=== PATIENT | male | born 1980 | race Asian ===

== ENCOUNTER 2016-04-01 13:08 | Inpatient (IN) | payer OTHER ==
[2016-04-01] MEDS ORDERED: MENTHOL/PHENOL 1 EACH UD MM PRN (15:59)
[2016-04-01] MEDS ORDERED: NICOTINE POLACRILEX 2 MG GUM BUC PRN (15:59)
[2016-04-01] MEDS ORDERED: MAGNESIUM CITRATE 300 ML BOTTLE PO PRN (15:59)
[2016-04-01] MEDS ORDERED: MAG HYDROX/AL HYDROX/SIMETH 30 ML UNIT-DOSE CUP PO PRN (15:59)
[2016-04-01] MEDS ORDERED: LOPERAMIDE HCL 2 MG CAPSULE PO PRN (15:59)
[2016-04-01] MEDS ORDERED: MAGNESIUM HYDROX 2400MG/30ML ORAL SUSPENSION 30 ML CUP PO PRN (15:59)
[2016-04-01] MEDS ORDERED: P-EPHED 60MG/TRIPROLIDI 2.5MG TABLET PO PRN (15:59)
--- NOTE | 2016-04-01 16:03 | HP ---
[facility] Rehab Assess/Revision - Admission History Admitted to Rehab from: [facility] Date of Admission to Rehab: 04/01/16 - Vital signs Vital Signs: Vital Signs Period Temp Pulse Resp BP Sys/Isabel Pulse Ox Last 24 Hr 99 F 97 18 104/60 - Findings Detox History & Physical reviewed: Yes Concur with findings: Yes
[2016-04-01] MEDS: IBUPROFEN 400 MG TABLET (FP) PO PRN (19:04)
[2016-04-01] MEDS: THIAMINE HCL 100 MG TABLET (FP) PO SCH (21:24)
[2016-04-01] MEDS: QUEtiapine FUMARATE 100 MG TABLET (FP) PO SCH (21:24)
[2016-04-02] MEDS ORDERED: METHADONE HCL 40 MG DISPERSABLE TABLET ONE (03:15)
[2016-04-02] MEDS ORDERED: METHADONE HCL 10 MG TABLET ONE (03:15)
[2016-04-02] MEDS ORDERED: METHADONE HCL 10 MG TABLET PO SCH (06:00)
[2016-04-02] MEDS: METHADONE 120 MG, METHADONE 20 MG PO SCH (06:13)
[2016-04-02] MEDS: NICOTINE 14 MG/24 HOURS TOPICAL PATCH TD SCH (09:50)
[2016-04-02] MEDS: PRENATAL VITAMINS W/ FOLIC ACID TABLET (FP) PO SCH (09:50)
--- NOTE | 2016-04-02 12:24 | HP ---
Psychiatrist Admission - Data Date of interview: 04/02/16 Admission source: 6N Identifying data: This is the second [facility] admission for this 36 years [place] male, unemployed with no source of income, currently homeless. Medical History: Significant for history of drug-elated seizure and S/P fracture right forearm & right elbow. Patient smokes 10 cigarettes daily, on MMTP 140 mg daily. Psychiatric History: Pateint reports first psychiatric contact was in 2012 at [facility] in [place], [place] following a suicidal attempt as overdosing with Ambien, reports he was extremely anxious and panicy "just to end it I took 30 pills", he was admitted to the hospital for 3 days and discharged after, and never followed up out patient setting. He denies any suicidal ideations at present time. States he is currently on Seroquel 400 mg po hs, Seen by and continued 300 mg po hs. Physical/Sexual Abuse/Trauma History: Denies history of physical, sexual abuse as well as DV relationship Vital Signs: Vital Signs - 24 hr 04/01/16 04/02/16 04/02/16 13:48 00:30 03:30 Temperature 99 F Pulse Rate 97 H Respiratory 18 18 18 Rate Blood Pressure 104/60 04/02/16 05:56 Temperature 97.2 F L Pulse Rate 86 Respiratory 18 Rate Blood Pressure 109/75 Allergies/Adverse Reactions: Allergies Allergy/AdvReac Type Severity Reaction Status Date / Time No Known Allergies Allergy Verified 04/01/16 13:42 Date of last physical exam: 03/29/16 Concur with the findings of this exam: Yes - Substance Abuse/Tx History Hx Alcohol Use: Yes (vodka, beer daily use.) Hx Substance Use: No Substance Use Type: Heroin (last use 3 months ago) Hx Substance Use Treatment: Yes - Admission Criteria Previous failed treatment: Yes Poor recovery environment: Yes Comorbidities: Yes Lacks judgement: Yes Mental Status Exam - Mental Status Exam Alert and Oriented to: Time, Place, Person Cognitive Function: Good Patient Appearance: Well Groomed Mood: Sad, Hopeful Affect: Appropriate, Mood Congruent Patient Behavior: Appropriate, Cooperative Speech Pattern: Clear, Appropriate Voice Loudness: Normal Thought Process: Intact, Goal Oriented Thought Disorder: Not Present Hallucinations: Denies Suicidal Ideation: Denies Homicidal Ideation: Denies Insight/Judgement: Fair Sleep: Fair Appetite: Good Muscle strength/Tone: Normal Gait/Station: Normal Psychiatric Findings - Problem List ([place] 1, 2,3) (1) Alcohol dependence with uncomplicated withdrawal Current Visit: No Status: Chronic (2) Methadone maintenance therapy patient Current Visit: No Status: Chronic Comment: patient missed "few days" received 120 ml today 03/27/16, begin 130 mg on 03/28/16 and 140 mg on 03/29/16 and after verified by DOT Uma[place] at [facility] (3) Nicotine dependence Current Visit: No Status: Chronic Qualifiers: Nicotine product type: cigarettes Substance use status: uncomplicated Qualified Code(s): F17.210 - Nicotine dependence, cigarettes, uncomplicated (4) Alcohol dependence with alcohol-induced mood disorder Current Visit: Yes Status: Acute - Initial Treatment Plan Initial Treatment Plan: Will continue Seroquel 300 mg po hs, monitor progress as needed.
[2016-04-02] MEDS ORDERED: HYDROCORTISONE 1% TOPICAL CREAM 30 GM TUBE TP PRN (14:26)
[2016-04-02] MEDS ORDERED: COLLOIDAL OATMEAL 1 BAR EACH TP PRN (14:27)
[2016-04-02] MEDS: IBUPROFEN 400 MG TABLET (FP) PO PRN (17:35)
[2016-04-02] MEDS: QUEtiapine FUMARATE 100 MG TABLET (FP) PO SCH (21:15)
[2016-04-02] MEDS: THIAMINE HCL 100 MG TABLET (FP) PO SCH (21:15)
[2016-04-03] MEDS ORDERED: METHADONE HCL 40 MG DISPERSABLE TABLET ONE (04:14)
[2016-04-03] MEDS ORDERED: METHADONE HCL 10 MG TABLET ONE (04:14)
[2016-04-03] MEDS: METHADONE 120 MG, METHADONE 20 MG PO SCH (06:09)
[2016-04-03] MEDS: guaiFENesin/D-METHORPHAN HB 10 ML UNIT-DOSE CUPS PO PRN ×2 (08:28→21:42)
[2016-04-03] MEDS: ACETAMINOPHEN 325 MG TABLET (FP) PO PRN ×2 (09:04→21:15)
[2016-04-03] MEDS: NICOTINE 14 MG/24 HOURS TOPICAL PATCH TD SCH (09:50)
[2016-04-03] MEDS: PRENATAL VITAMINS W/ FOLIC ACID TABLET (FP) PO SCH (09:50)
[2016-04-03] MEDS: IBUPROFEN 600 MG TABLET (FP) PO PRN (14:17)
[2016-04-03] MEDS: THIAMINE HCL 100 MG TABLET (FP) PO SCH (21:14)
[2016-04-03] MEDS: QUEtiapine FUMARATE 100 MG TABLET (FP) PO SCH (21:15)
[2016-04-04] MEDS ORDERED: METHADONE HCL 10 MG TABLET ONE (03:12)
[2016-04-04] MEDS ORDERED: METHADONE HCL 40 MG DISPERSABLE TABLET ONE (03:12)
[2016-04-04] MEDS: METHADONE 120 MG, METHADONE 20 MG PO SCH (06:10)
[2016-04-04] MEDS: IBUPROFEN 600 MG TABLET (FP) PO PRN (09:44)
[2016-04-04] MEDS: PRENATAL VITAMINS W/ FOLIC ACID TABLET (FP) PO SCH (09:45)
[2016-04-04] MEDS: NICOTINE 14 MG/24 HOURS TOPICAL PATCH TD SCH (09:45)
[2016-04-04] MEDS: ACETAMINOPHEN 325 MG TABLET (FP) PO PRN (20:02)
[2016-04-04] MEDS: THIAMINE HCL 100 MG TABLET (FP) PO SCH (21:18)
[2016-04-04] MEDS: QUEtiapine FUMARATE 100 MG TABLET (FP) PO SCH (21:18)
[2016-04-04] MEDS ORDERED: SIMETHICONE 80 MG TAB.CHEW (FP) PO PRN (21:59)
[2016-04-05] MEDS ORDERED: METHADONE HCL 40 MG DISPERSABLE TABLET ONE (04:19)
[2016-04-05] MEDS ORDERED: METHADONE HCL 10 MG TABLET ONE (04:19)
[2016-04-05] MEDS: METHADONE 120 MG, METHADONE 20 MG PO SCH (06:12)
[2016-04-05] MEDS: PRENATAL VITAMINS W/ FOLIC ACID TABLET (FP) PO SCH (09:46)
[2016-04-05] MEDS: NICOTINE 14 MG/24 HOURS TOPICAL PATCH TD SCH (09:47)
[2016-04-05] MEDS: IBUPROFEN 600 MG TABLET (FP) PO PRN (10:13)
[2016-04-05] MEDS: diphenhydrAMINE HCL 50 MG CAPSULE PO PRN (21:23)
[2016-04-05] MEDS: THIAMINE HCL 100 MG TABLET (FP) PO SCH (21:23)
[2016-04-05] MEDS: QUEtiapine FUMARATE 100 MG TABLET (FP) PO SCH (21:23)
[2016-04-06] MEDS ORDERED: METHADONE HCL 40 MG DISPERSABLE TABLET ONE (03:40)
[2016-04-06] MEDS ORDERED: METHADONE HCL 10 MG TABLET ONE (03:41)
[2016-04-06] MEDS: METHADONE 120 MG, METHADONE 20 MG PO SCH (06:09)
[2016-04-06] MEDS: PRENATAL VITAMINS W/ FOLIC ACID TABLET (FP) PO SCH (09:36)
[2016-04-06] MEDS: NICOTINE 14 MG/24 HOURS TOPICAL PATCH TD SCH (09:36)
[2016-04-06] MEDS: QUEtiapine FUMARATE 100 MG TABLET (FP) PO SCH (21:21)
[2016-04-06] MEDS: diphenhydrAMINE HCL 50 MG CAPSULE PO PRN (21:21)
[2016-04-06] MEDS: THIAMINE HCL 100 MG TABLET (FP) PO SCH (21:21)
[2016-04-07] MEDS ORDERED: METHADONE HCL 10 MG TABLET ONE (04:40)
[2016-04-07] MEDS ORDERED: METHADONE HCL 40 MG DISPERSABLE TABLET ONE (04:40)
[2016-04-07] MEDS: METHADONE 120 MG, METHADONE 20 MG PO SCH (06:22)
[2016-04-07] MEDS: PRENATAL VITAMINS W/ FOLIC ACID TABLET (FP) PO SCH (09:37)
[2016-04-07] MEDS: NICOTINE 14 MG/24 HOURS TOPICAL PATCH TD SCH (09:37)
[2016-04-07] MEDS: THIAMINE HCL 100 MG TABLET (FP) PO SCH (21:38)
[2016-04-07] MEDS: diphenhydrAMINE HCL 50 MG CAPSULE PO PRN (21:38)
[2016-04-07] MEDS: QUEtiapine FUMARATE 100 MG TABLET (FP) PO SCH (21:38)
[2016-04-08] MEDS ORDERED: METHADONE HCL 40 MG DISPERSABLE TABLET ONE (03:12)
[2016-04-08] MEDS ORDERED: METHADONE HCL 10 MG TABLET ONE (03:13)
[2016-04-08] MEDS: METHADONE 120 MG, METHADONE 20 MG PO SCH (06:10)
[2016-04-08] MEDS: NICOTINE 14 MG/24 HOURS TOPICAL PATCH TD SCH (09:46)
[2016-04-08] MEDS: PRENATAL VITAMINS W/ FOLIC ACID TABLET (FP) PO SCH (09:46)
[2016-04-08] MEDS: THIAMINE HCL 100 MG TABLET (FP) PO SCH (21:16)
[2016-04-08] MEDS: QUEtiapine FUMARATE 100 MG TABLET (FP) PO SCH (21:16)
[2016-04-08] MEDS: diphenhydrAMINE HCL 50 MG CAPSULE PO PRN (21:18)
[2016-04-09] MEDS ORDERED: METHADONE HCL 40 MG DISPERSABLE TABLET ONE (03:15)
[2016-04-09] MEDS ORDERED: METHADONE HCL 10 MG TABLET ONE (03:15)
[2016-04-09] MEDS: METHADONE 120 MG, METHADONE 20 MG PO SCH (06:04)
[2016-04-09] MEDS: NICOTINE 14 MG/24 HOURS TOPICAL PATCH TD SCH (09:48)
[2016-04-09] MEDS: PRENATAL VITAMINS W/ FOLIC ACID TABLET (FP) PO SCH (09:48)
[2016-04-09] MEDS: THIAMINE HCL 100 MG TABLET (FP) PO SCH (21:02)
[2016-04-09] MEDS: diphenhydrAMINE HCL 50 MG CAPSULE PO PRN (21:04)
[2016-04-09] MEDS: QUEtiapine FUMARATE 100 MG TABLET (FP) PO SCH (21:04)
[2016-04-10] MEDS ORDERED: METHADONE HCL 10 MG TABLET ONE (03:43)
[2016-04-10] MEDS ORDERED: METHADONE HCL 40 MG DISPERSABLE TABLET ONE (03:43)
[2016-04-10] MEDS: METHADONE 120 MG, METHADONE 20 MG PO SCH (05:59)
[2016-04-10] MEDS: NICOTINE 14 MG/24 HOURS TOPICAL PATCH TD SCH (10:15)
[2016-04-10] MEDS: PRENATAL VITAMINS W/ FOLIC ACID TABLET (FP) PO SCH (10:15)
[2016-04-10] MEDS: IBUPROFEN 600 MG TABLET (FP) PO PRN (10:16)
[2016-04-10] MEDS: THIAMINE HCL 100 MG TABLET (FP) PO SCH (21:20)
[2016-04-10] MEDS: QUEtiapine FUMARATE 100 MG TABLET (FP) PO SCH (21:20)
[2016-04-10] MEDS: diphenhydrAMINE HCL 50 MG CAPSULE PO PRN (21:21)
[2016-04-11] MEDS ORDERED: METHADONE HCL 40 MG DISPERSABLE TABLET ONE (03:14)
[2016-04-11] MEDS ORDERED: METHADONE HCL 10 MG TABLET ONE (03:14)
[2016-04-11] MEDS: METHADONE 120 MG, METHADONE 20 MG PO SCH (06:21)
[2016-04-11] MEDS: NICOTINE 14 MG/24 HOURS TOPICAL PATCH TD SCH (09:48)
[2016-04-11] MEDS: PRENATAL VITAMINS W/ FOLIC ACID TABLET (FP) PO SCH (09:48)
[2016-04-11] MEDS: QUEtiapine FUMARATE 100 MG TABLET (FP) PO SCH (21:06)
[2016-04-11] MEDS: THIAMINE HCL 100 MG TABLET (FP) PO SCH (21:06)
[2016-04-11] MEDS: diphenhydrAMINE HCL 50 MG CAPSULE PO PRN (21:07)
[2016-04-12] MEDS ORDERED: METHADONE HCL 40 MG DISPERSABLE TABLET ONE (04:52)
[2016-04-12] MEDS ORDERED: METHADONE HCL 10 MG TABLET ONE (04:53)
[2016-04-12] MEDS: METHADONE 120 MG, METHADONE 20 MG PO SCH (06:01)
[2016-04-12] MEDS: PRENATAL VITAMINS W/ FOLIC ACID TABLET (FP) PO SCH (10:00)
[2016-04-12] MEDS: NICOTINE 14 MG/24 HOURS TOPICAL PATCH TD SCH (10:00)
[2016-04-12] MEDS: IBUPROFEN 600 MG TABLET (FP) PO PRN (10:01)
[2016-04-12] MEDS: QUEtiapine FUMARATE 100 MG TABLET (FP) PO SCH (21:05)
[2016-04-12] MEDS: THIAMINE HCL 100 MG TABLET (FP) PO SCH (21:05)
[2016-04-12] MEDS: diphenhydrAMINE HCL 50 MG CAPSULE PO PRN (21:06)
[2016-04-13] MEDS ORDERED: METHADONE HCL 40 MG DISPERSABLE TABLET ONE (04:42)
[2016-04-13] MEDS ORDERED: METHADONE HCL 10 MG TABLET ONE (04:42)
[2016-04-13] MEDS: METHADONE 120 MG, METHADONE 20 MG PO SCH (06:08)
[2016-04-13] MEDS: NICOTINE 14 MG/24 HOURS TOPICAL PATCH TD SCH (09:47)
[2016-04-13] MEDS: PRENATAL VITAMINS W/ FOLIC ACID TABLET (FP) PO SCH (09:47)
[2016-04-13] MEDS: QUEtiapine FUMARATE 100 MG TABLET (FP) PO SCH (21:24)
[2016-04-13] MEDS: THIAMINE HCL 100 MG TABLET (FP) PO SCH (21:24)
[2016-04-13] MEDS: diphenhydrAMINE HCL 50 MG CAPSULE PO PRN (21:25)
[2016-04-14] MEDS ORDERED: METHADONE HCL 40 MG DISPERSABLE TABLET ONE (03:07)
[2016-04-14] MEDS ORDERED: METHADONE HCL 10 MG TABLET ONE (03:08)
[2016-04-14] MEDS: METHADONE 120 MG, METHADONE 20 MG PO SCH (06:26)
[2016-04-14] MEDS: PRENATAL VITAMINS W/ FOLIC ACID TABLET (FP) PO SCH (09:51)
[2016-04-14] MEDS: NICOTINE 14 MG/24 HOURS TOPICAL PATCH TD SCH (09:51)
[2016-04-14] MEDS: QUEtiapine FUMARATE 100 MG TABLET (FP) PO SCH (21:11)
[2016-04-14] MEDS: THIAMINE HCL 100 MG TABLET (FP) PO SCH (21:12)
[2016-04-15] MEDS ORDERED: METHADONE HCL 10 MG TABLET ONE (03:10)
[2016-04-15] MEDS ORDERED: METHADONE HCL 40 MG DISPERSABLE TABLET ONE (03:10)
[2016-04-15] MEDS: METHADONE 120 MG, METHADONE 20 MG PO SCH (06:28)
[2016-04-15] MEDS: PRENATAL VITAMINS W/ FOLIC ACID TABLET (FP) PO SCH (09:31)
[2016-04-15] MEDS: NICOTINE 14 MG/24 HOURS TOPICAL PATCH TD SCH (09:31)
[2016-04-15] MEDS: IBUPROFEN 600 MG TABLET (FP) PO PRN (10:51)
[2016-04-15] MEDS: THIAMINE HCL 100 MG TABLET (FP) PO SCH (21:48)
[2016-04-15] MEDS: QUEtiapine FUMARATE 100 MG TABLET (FP) PO SCH (21:48)
[2016-04-16] MEDS ORDERED: METHADONE HCL 10 MG TABLET ONE (03:16)
[2016-04-16] MEDS ORDERED: METHADONE HCL 40 MG DISPERSABLE TABLET ONE (03:16)
[2016-04-16] MEDS: METHADONE 120 MG, METHADONE 20 MG PO SCH (06:06)
[2016-04-16] MEDS: NICOTINE 14 MG/24 HOURS TOPICAL PATCH TD SCH (09:40)
[2016-04-16] MEDS: PRENATAL VITAMINS W/ FOLIC ACID TABLET (FP) PO SCH (09:40)
[2016-04-16] MEDS: diphenhydrAMINE HCL 50 MG CAPSULE PO PRN (21:39)
[2016-04-16] MEDS: THIAMINE HCL 100 MG TABLET (FP) PO SCH (21:39)
[2016-04-16] MEDS: QUEtiapine FUMARATE 100 MG TABLET (FP) PO SCH (21:39)
[2016-04-17] MEDS ORDERED: METHADONE HCL 10 MG TABLET ONE (03:20)
[2016-04-17] MEDS ORDERED: METHADONE HCL 40 MG DISPERSABLE TABLET ONE (03:20)
[2016-04-17] MEDS ORDERED: METHADONE HCL 40 MG DISPERSABLE TABLET PO SCH (06:00)
[2016-04-17] MEDS: METHADONE 120 MG, METHADONE 20 MG PO SCH (06:06)
[2016-04-17] MEDS: IBUPROFEN 600 MG TABLET (FP) PO PRN (09:38)
[2016-04-17] MEDS: PRENATAL VITAMINS W/ FOLIC ACID TABLET (FP) PO SCH (09:39)
[2016-04-17] MEDS: NICOTINE 14 MG/24 HOURS TOPICAL PATCH TD SCH (09:39)
[2016-04-17] MEDS: diphenhydrAMINE HCL 50 MG CAPSULE PO PRN (21:57)
[2016-04-17] MEDS: THIAMINE HCL 100 MG TABLET (FP) PO SCH (21:57)
[2016-04-17] MEDS: QUEtiapine FUMARATE 100 MG TABLET (FP) PO SCH (21:58)
[2016-04-18] MEDS ORDERED: METHADONE HCL 40 MG DISPERSABLE TABLET ONE (06:02)
[2016-04-18] MEDS ORDERED: METHADONE HCL 10 MG TABLET ONE (06:02)
[2016-04-18] MEDS: METHADONE 120 MG, METHADONE 20 MG PO SCH (06:29)
[2016-04-18] MEDS: PRENATAL VITAMINS W/ FOLIC ACID TABLET (FP) PO SCH (09:54)
[2016-04-18] MEDS: NICOTINE 14 MG/24 HOURS TOPICAL PATCH TD SCH (09:54)
[2016-04-18] MEDS: IBUPROFEN 600 MG TABLET (FP) PO PRN (14:24)
[2016-04-18] MEDS: QUEtiapine FUMARATE 100 MG TABLET (FP) PO SCH (21:28)
[2016-04-18] MEDS: THIAMINE HCL 100 MG TABLET (FP) PO SCH (21:28)
[2016-04-19] MEDS ORDERED: METHADONE HCL 40 MG DISPERSABLE TABLET ONE (06:07)
[2016-04-19] MEDS ORDERED: METHADONE HCL 10 MG TABLET ONE (06:07)
[2016-04-19] MEDS: METHADONE 120 MG, METHADONE 20 MG PO SCH (06:08)
[2016-04-19] MEDS: PRENATAL VITAMINS W/ FOLIC ACID TABLET (FP) PO SCH (10:21)
[2016-04-19] MEDS: NICOTINE 14 MG/24 HOURS TOPICAL PATCH TD SCH (10:22)
[2016-04-19] MEDS: THIAMINE HCL 100 MG TABLET (FP) PO SCH (21:45)
[2016-04-19] MEDS: QUEtiapine FUMARATE 100 MG TABLET (FP) PO SCH (21:45)
[2016-04-20] MEDS ORDERED: METHADONE HCL 10 MG TABLET ONE (03:02)
[2016-04-20] MEDS ORDERED: METHADONE HCL 40 MG DISPERSABLE TABLET ONE (03:02)
[2016-04-20] MEDS: METHADONE 120 MG, METHADONE 20 MG PO SCH (06:07)
[2016-04-20] MEDS: IBUPROFEN 600 MG TABLET (FP) PO PRN (09:44)
[2016-04-20] MEDS: NICOTINE 14 MG/24 HOURS TOPICAL PATCH TD SCH (09:44)
[2016-04-20] MEDS: PRENATAL VITAMINS W/ FOLIC ACID TABLET (FP) PO SCH (09:44)
[2016-04-20] MEDS: THIAMINE HCL 100 MG TABLET (FP) PO SCH (22:10)
[2016-04-20] MEDS: QUEtiapine FUMARATE 100 MG TABLET (FP) PO SCH (22:10)
[2016-04-21] MEDS ORDERED: METHADONE HCL 10 MG TABLET ONE (03:58)
[2016-04-21] MEDS ORDERED: METHADONE HCL 40 MG DISPERSABLE TABLET ONE (03:58)
[2016-04-21] MEDS: METHADONE 120 MG, METHADONE 20 MG PO SCH (06:26)
[2016-04-21] MEDS: PRENATAL VITAMINS W/ FOLIC ACID TABLET (FP) PO SCH (09:47)
[2016-04-21] MEDS: NICOTINE 14 MG/24 HOURS TOPICAL PATCH TD SCH (09:48)
[2016-04-21] MEDS: QUEtiapine FUMARATE 100 MG TABLET (FP) PO SCH (21:33)
[2016-04-21] MEDS: THIAMINE HCL 100 MG TABLET (FP) PO SCH (21:33)
[2016-04-22] MEDS ORDERED: METHADONE HCL 10 MG TABLET ONE (06:01)
[2016-04-22] MEDS ORDERED: METHADONE HCL 40 MG DISPERSABLE TABLET ONE (06:01)
[2016-04-22] MEDS: METHADONE 120 MG, METHADONE 20 MG PO SCH (07:00)
[2016-04-22] MEDS: PRENATAL VITAMINS W/ FOLIC ACID TABLET (FP) PO SCH (10:03)
[2016-04-22] MEDS: NICOTINE 14 MG/24 HOURS TOPICAL PATCH TD SCH (10:04)
[2016-04-22] MEDS: QUEtiapine FUMARATE 100 MG TABLET (FP) PO SCH (21:35)
[2016-04-22] MEDS: THIAMINE HCL 100 MG TABLET (FP) PO SCH (21:35)
[2016-04-23] MEDS ORDERED: METHADONE HCL 40 MG DISPERSABLE TABLET ONE (03:01)
[2016-04-23] MEDS ORDERED: METHADONE HCL 10 MG TABLET ONE (03:02)
[2016-04-23] MEDS: METHADONE 120 MG, METHADONE 20 MG PO SCH (06:02)
[2016-04-23 06:41] VITALS: BP 117/76; PULSE 83; TEMP 98.1
[2016-04-23] MEDS: PRENATAL VITAMINS W/ FOLIC ACID TABLET (FP) PO SCH (09:46)
[2016-04-23] MEDS: NICOTINE 14 MG/24 HOURS TOPICAL PATCH TD SCH (09:46)
--- NOTE | 2016-04-23 09:57 | PN ---
Psychiatric Progress Note Vital Signs: Vital Signs Period Temp Pulse Resp BP Sys/Isabel Pulse Ox Last 24 Hr 98.1 F 83 18-18 117/76 Date of Session: 04/23/16 Chief Complaint:: dischargev visit HPI: Patient has addresse alcohol, nicotine dependence comorbid alcohol induced mood disorder ROS: on MMTP medically managed. Current Medications: Active Medications Generic Name Dose Route Start Last Admin Trade Name Freq PRN Reason Stop Dose Admin Acetaminophen 650 mg 04/01/16 15:59 04/04/16 20:02 Tylenol - PO 650 mg Q4H PRN Administration FEVER OR PAIN Colloidal Oatmeal 1 applic 04/02/16 14:27 Aveeno Soap - TP DAILY PRN HYGEINE Diphenhydramine HCl 50 mg 04/01/16 15:59 04/17/16 21:57 Benadryl - PO 50 mg HSMR1 PRN Administration FOR ITCHING Eucalyptus/Menthol/Phenol/Sorbitol 1 each 04/01/16 15:59 04/03/16 08:28 Cepastat Lozenge - MM 1 each Q4H PRN Administration SORE THROAT Guaifenesin 10 ml 04/01/16 15:59 04/03/16 21:42 Robitussin Dm - PO 10 ml Q6H PRN Administration COUGH Hydrocortisone 1 applic 04/02/16 14:26 04/08/16 21:20 Hytone 1% Cream - TP 1 applic BID PRN Administration FOR ITCHING Ibuprofen 600 mg 04/03/16 14:27 04/20/16 09:44 Motrin - PO 600 mg Q6H PRN Administration PAIN Loperamide HCl 4 mg 04/01/16 15:59 Imodium - PO Q6H PRN DIARRHEA Magnesium Hydroxide 30 ml 04/01/16 15:59 Milk Of Magnesia - PO DAILY PRN CONSTIPATION Methadone HCl 120 mg/ 140 mg 04/17/16 06:00 04/23/16 06:02 Methadone HCl 20 mg PO 140 mg DAILY@0600 ANUJ Administration Nicotine 14 mg 04/02/16 10:00 04/23/16 09:46 Nicoderm Patch - TD Not Given DAILY ANUJ Nicotine Polacrilex 2 mg 04/01/16 15:59 Nicorette Gum - BUC Q2H PRN NICOTINE REPLACEMENT RX Multivit/Folic Acid/Iron 1 tab 04/02/16 10:00 04/23/16 09:46 Vitamins (Sjr) - PO 1 tab DAILY ANUJ Administration Pseudoephedrine/Triprolidine 1 combo 04/01/16 15:59 Actifed - PO TID PRN NASAL CONGESTION Quetiapine Fumarate 300 mg 04/01/16 22:00 04/22/16 21:35 Seroquel - PO 300 mg HS ANUJ Administration Simethicone 80 mg 04/04/16 21:59 Mylicon - PO QID PRN GAS Thiamine HCl 100 mg 04/01/16 22:00 04/22/16 21:35 Vitamin B1 - PO 100 mg HS ANUJ Administration Current Side Effect: No Lab tests ordered: No Lab tests reviewed: Yes Provider note:: Patient has completed today his treatment and met his goals, will continue to addess his issues at [facility] rehabilitation program. Patient focused on importance of continue maintain his abstiennce, changing attitudes/behavior for the utilization of supports and use alternative ways to cope with life stressors. Patient continues to respond well to Seroquel scripts provided for 30 days, patient is stable for discharge. Total face to face time:: 25 Mental Status Exam - Mental Status Exam Alert and Oriented to: Time, Place, Person Cognitive Function: Good Patient Appearance: Well Groomed Mood: Hopeful Affect: Appropriate, Mood Congruent Patient Behavior: Appropriate, Cooperative Speech Pattern: Clear, Appropriate Voice Loudness: Normal Thought Process: Goal Oriented Thought Disorder: Not Present Hallucinations: Denies Suicidal Ideation: Denies Homicidal Ideation: Denies Insight/Judgement: Fair Sleep: Fair Appetite: Fair Muscle strength/Tone: Normal Gait/Station: Normal Psychiatric Treatment Plan - Problem List (2) Methadone maintenance therapy patient Comment: patient missed "few days" received 120 ml today 03/27/16, begin 130 mg on 03/28/16 and 140 mg on 03/29/16 and after verified by DOT Umaña at [facility] (3) Nicotine dependence Qualifiers: Nicotine product type: cigarettes Substance use status: uncomplicated Qualified Code(s): F17.210 - Nicotine dependence, cigarettes, uncomplicated
== END 2016-04-23 10:40 | disposition home or self-care (01) | DRG 772 ==
LOC: YASAS 13:08 → Y5N 13:09
PROVIDERS: ADMIT Psychiatry & Neurology Psychiatry; ATTEND Psychiatry & Neurology Psychiatry
PROC: HZ42ZZZ Group Counseling for Substance Abuse Treatment, Cognitive-Behavioral (ICD-10-PCS; principal; 2016-04-01)
DX: F10.20 Alcohol dependence, uncomplicated (principal); F10.24 Alcohol dependence with alcohol-induced mood disorder; F11.20 Opioid dependence, uncomplicated; F17.210 Nicotine dependence, cigarettes, uncomplicated

== ENCOUNTER 2016-07-07 11:00 | Inpatient (IN) | payer OTHER ==
[2016-07-07 11:37] VITALS: BMI 22.3
--- NOTE | 2016-07-07 12:08 | HP ---
CIWA Score - CIWA Score Nausea/Vomitin-Mild Nausea/No Vomiting Muscle Tremors: 3 Anxiety: 4-Mod. Anxious/Guarded Agitation: 1-Slight > Activity Paroxysmal Sweats: 1-Minimal Palms Moist Orientation: 1-Uncertain about Date Tacttile Disturbances: 1-Very Mild Itch/Numbness Auditory Disturbances: 1-Very Mild Visual Disturbances: 1-Very Mild Sensitivity Headache: 2-Mild CIWA-Ar Total Score: 16 Admission ROS BHS - HPI Chief Complaint: I'm here to stop drinking Allergies/Adverse Reactions: Allergies Allergy/AdvReac Type Severity Reaction Status Date / Time No Known Allergies Allergy Verified 07/07/16 12:11 History of Present Illness: 36 yo gentleman here for detox from alcohol - history of drug related seizure a year ago - on methadone program - took dose today and has bottle from program with him. Last here for detox in March 2016 and was in [facility] about a month ago. Exam Limitations: Clinical Condition - Ebola screening Have you traveled outside of the country in the last 21 days: No Have you had contact with anyone from an Ebola affected area: No Have you been sick,other than usual withdrawal symptoms: No Do you have a fever: No - Review of Systems Constitutional: Malaise, Changes in sleep EENT: reports: No Symptoms Reported Respiratory: reports: No Symptoms reported Cardiac: reports: No Symptoms Reported GI: reports: Nausea, Indigestion : reports: No Symptoms Reported Musculoskeletal: reports: No Symptoms Reported Integumentary: reports: No Symptoms Reported Neuro: reports: Headache Endocrine: reports: No Symptoms Reported Hematology: reports: No Symptoms Reported Psychiatric: reports: Anxious Other Systems: Reviewed and Negative Patient History - Patient Medical History Hx Anemia: No Hx Asthma: No Hx Chronic Obstructive Pulmonary Disease (COPD): No Hx Cancer: No Hx Cardiac Disorders: No Hx Congestive Heart Failure: No Hx Hypertension: No Hx Hypercholesterolemia: No Hx Pacemaker: No HX Cerebrovascular Accident: No Hx Seizures: Yes (drug related 2015) Hx Dementia: No Hx Diabetes: No Hx Gastrointestinal Disorders: No Hx Liver Disease: No Hx Genitourinary Disorders: No Hx Sexually Transmitted Disorders: No Hx Renal Disease (ESRD): No Hx Thyroid Disease: No Hx Human Immunodeficiency Virus (HIV): No (2014) Hx Hepatitis C: Yes (not treated) Hx Depression: Yes Hx Suicide Attempt: Yes (2013 BY PILL OVER DOSE) Hx Bipolar Disorder: No Hx Schizophrenia: No - Patient Surgical History Past Surgical History: Yes Hx Neurologic Surgery: No Hx Cataract Extraction: No Hx Cardiac Surgery: No Hx Lung Surgery: No Hx Breast Surgery: No Hx Breast Biopsy: No Hx Abdominal Surgery: No Hx Appendectomy: Yes (2004) Hx Cholecystectomy: No Hx Genitourinary Surgery: No Hx Section: No Hx Orthopedic Surgery: Yes (rt forearm héctor , rt elbow ) Anesthesia Reaction: No - PPD History Previous Implant?: Yes Documented Results: Negative w/proof Implanted On Prior [facility] Admission?: No Date: 12/29/15 Results: 0 mm. PPD to be Administered?: No - Reproductive History Patient is a Female of Child Bearing Age (11 -55 yrs old): No (male) - Smoking Cessation Smoking history: Current every day smoker Have you smoked in the past 12 months: Yes Aproximately how many cigarettes per day: 10 Cigars Per Day: 0 Hx Chewing Tobacco Use: No Initiated information on smoking cessation: Yes 'Breaking Loose' booklet given: 07/07/16 (give on florr) - Substance & Tx. History Hx Alcohol Use: Yes Hx Substance Use: No Substance Use Type: Alcohol Hx Substance Use Treatment: Yes (methadone, hx detox) - Substances Abused Alcohol Route: Oral Frequency: Daily Amount used: ten twelve oz beers; 'some' liquor Age of first use: 17 Date of Last Use: 07/07/16 Family Disease History - Family Disease History Family Disease History: Other: Father (alive, no contact), Mother (alive, no contact), Sister (alive, no contact) Admission Physical Exam S - Vital Signs Vital Signs: Vital Signs - 24 hr 07/07/16 11:35 Temperature 98.1 F Pulse Rate 88 Respiratory 18 Rate Blood Pressure 130/62 - Physical General Appearance: Yes: Nourished, Appropriately Dressed, Mild Distress, Anxious HEENTM: Yes: Hearing grossly Normal, Normocephalic, Normal Voice Respiratory: Yes: Normal Breath Sounds, No Respiratory Distress Neck: Yes: No masses,lesions,Nodules, Supple Breast: Yes: Breast Exam Deferred Cardiology: Yes: Regular Rhythm, Regular Rate Abdominal: Yes: Flat, Soft Genitourinary: Yes: Within Normal Limits Back: Yes: Normal Inspection Musculoskeletal: Yes: full range of Motion, Gait Steady Extremities: Yes: Normal Inspection, Non-Tender Neurological: Yes: Fully Oriented, Alert, Normal Mood/Affect Integumentary: Yes: Normal Color, Warm Lymphatic: Yes: Within Normal Limits - Diagnostic (1) Alcohol dependence with uncomplicated withdrawal Current Visit: Yes Status: Chronic (2) Methadone maintenance therapy patient Current Visit: Yes Status: Chronic Comment: brought bottle 140mg (3) Nicotine dependence Current Visit: Yes Status: Chronic Qualifiers: Nicotine product type: cigarettes Substance use status: uncomplicated Qualified Code(s): F17.210 - Nicotine dependence, cigarettes, uncomplicated (4) Hepatitis C antibody test positive Current Visit: Yes Status: Chronic (5) History of seizure Current Visit: Yes Status: Chronic Comment: drug related one year ago Cleared for Admission [facility] - Detox or Rehab [facility] Level of Care: Medically Managed Detox Regimen/Protocol: Librium [facility] Breath Alcohol Content Breath Alcohol Content: 0 Urine Drug Screen - Results Drug Screen Negative: No Urine Drug Screen Results: MTD-Methadone
[2016-07-07] MEDS ORDERED: chlordiazePOXIDE HCL 25 MG CAPSULE PO PRN (12:22)
[2016-07-07] MEDS ORDERED: guaiFENesin/D-METHORPHAN HB 10 ML UNIT-DOSE CUPS PO PRN (12:22)
[2016-07-07] MEDS ORDERED: MAGNESIUM CITRATE 300 ML BOTTLE PO PRN (12:22)
[2016-07-07] MEDS ORDERED: LOPERAMIDE HCL 2 MG CAPSULE PO PRN (12:22)
[2016-07-07] MEDS ORDERED: MAGNESIUM HYDROX 2400MG/30ML ORAL SUSPENSION 30 ML CUP PO PRN (12:22)
[2016-07-07] MEDS ORDERED: MAG HYDROX/AL HYDROX/SIMETH 30 ML UNIT-DOSE CUP PO PRN (12:22)
[2016-07-07] MEDS ORDERED: ACETAMINOPHEN 325 MG TABLET (FP) PO PRN (12:22)
[2016-07-07] MEDS ORDERED: P-EPHED 60MG/TRIPROLIDI 2.5MG TABLET PO PRN (12:22)
[2016-07-07] MEDS ORDERED: MENTHOL/PHENOL 1 EACH UD MM PRN (12:22)
[2016-07-07] MEDS ORDERED: hydrOXYzine PAMOATE 50 MG CAPSULE (FP) PO PRN (12:22)
[2016-07-07] MEDS ORDERED: chlordiazePOXIDE HCL 25 MG CAPSULE PO ONE (12:45)
[2016-07-07] MEDS: NICOTINE 14 MG/24 HOURS TOPICAL PATCH TD SCH (13:58)
[2016-07-07] MEDS: chlordiazePOXIDE HCL 25 MG CAPSULE PO SCH ×2 (17:09→22:11)
[2016-07-07 19:27] LABS: URINE APPEARANCE CLEAR; URINE BILIRUBIN NEGATIVE (NEGATIVE); URINE BLOOD NEGATIVE (NEGATIVE); URINE COLOR YELLOW; URINE GLUCOSE (UA) NEGATIVE (NEGATIVE); URINE KETONE NEGATIVE (NEGATIVE); URINE NITRITE NEGATIVE (NEGATIVE); URINE PROTEIN NEGATIVE (NEGATIVE); URINE UROBILINOGEN NEGATIVE E.U./dl (0.2-1.0)
[2016-07-07 19:28] LABS: URINE LEUK ESTERASE 1+ (NEGATIVE)
[2016-07-07 19:32] LABS: URINE MUCUS RARE; URINE RBC 1 /hpf (0-3); URINE WBC 1 /hpf (3-5)
[2016-07-07] MEDS: diphenhydrAMINE HCL 50 MG CAPSULE PO PRN (22:11)
[2016-07-07] MEDS: THIAMINE HCL 100 MG TABLET (FP) PO SCH (22:11)
[2016-07-08] MEDS ORDERED: METHADONE HCL 40 MG DISPERSABLE TABLET ONE (05:09)
[2016-07-08] MEDS ORDERED: METHADONE HCL 10 MG TABLET ONE (05:10)
[2016-07-08] MEDS: chlordiazePOXIDE HCL 25 MG CAPSULE PO SCH ×4 (05:40→22:20)
[2016-07-08] MEDS: IBUPROFEN 400 MG TABLET (FP) PO PRN ×2 (05:41→12:48)
[2016-07-08] MEDS ORDERED: METHADONE HCL 10 MG TABLET PO ONE (06:00)
[2016-07-08] MEDS ORDERED: METHADONE 120 MG, METHADONE 20 MG PO ONE (06:00)
[2016-07-08] MEDS: PRENATAL VITAMINS W/ FOLIC ACID TABLET (FP) PO SCH (10:16)
[2016-07-08] MEDS: NICOTINE 14 MG/24 HOURS TOPICAL PATCH TD SCH (10:17)
[2016-07-08 10:47] LABS: MCHC 33.6 g/dl (32.0-35.9); MEAN CELL VOLUME 92.3 fl (80-96); MEAN PLT VOLUME 8.4 fl (7.5-11.1); PLATELET COUNT 218 K/MM3 (134-434); RDW 13.5 % (11.9-15.9); WHITE BLOOD COUNT 7.8 K/mm3 (4.0-10.0)
[2016-07-08 11:06] LABS: ALBUMIN 3.9 g/dl (3.4-5.0); ANION GAP 8 (8-16); CALCIUM 8.7 mg/dL (8.5-10.1); CO2 30 mmol/L (21-32); GLUCOSE,RANDOM 105 mg/dL (74-106)
[2016-07-08 11:12] LABS: ALK PHOS 86 U/L (45-117); BILIRUBIN,TOTAL 0.3 mg/dL (0.2-1.0); CREATININE 0.6 mg/dL (0.7-1.3); SGOT/AST 45 U/L (15-37); SGPT/ALT 173 U/L (12-78); TOT PROT 7.2 g/dl (6.4-8.2)
[2016-07-08] MEDS ORDERED: LIDOCAINE VISCOUS 2% ORAL/TOP 20 ML UNIT-DOSE CUP MM PRN (13:21)
--- NOTE | 2016-07-08 13:31 | PN ---
S CIWA - CIWA Score Nausea/Vomitin Muscle Tremors: 4-Moderate,w/Arms Extend Anxiety: 4-Mod. Anxious/Guarded Agitation: 4-Moderately Restless Paroxysmal Sweats: No Perspiration Orientation: 0-Oriented Tacttile Disturbances: 0-None Auditory Disturbances: 0-None Visual Disturbances: 0-None Headache: 3-Moderate CIWA-Ar Total Score: 17 BHS Progress Note (SOAP) Subjective: Tremor, sweating, headache, interrupted sleep, chills, nausea; c/o toothache ( motrin not effective) Objective: 07/08/16 13:28 Last Vital Signs Temp Pulse Resp BP Pulse Ox 98.9 F 93 H 18 101/68 07/08/16 10:00 07/08/16 10:00 07/08/16 10:00 07/08/16 10:00 Laboratory Tests 07/07/16 07/08/16 07/08/16 17:55 07:30 07:30 WBC 7.8 D RBC 4.27 Hgb 13.2 Hct 39.4 MCV 92.3 MCHC 33.6 RDW 13.5 Plt Count 218 MPV 8.4 Sodium 140 Potassium 4.4 Chloride 102 Carbon Dioxide 30 Anion Gap 8 BUN 17 D Creatinine 0.6 L Creat Clearance w eGFR > 60 Random Glucose 105 Calcium 8.7 Total Bilirubin 0.3 D AST 45 H D ALT 173 H D Alkaline Phosphatase 86 D Total Protein 7.2 Albumin 3.9 Urine Color Yellow Urine Appearance Clear Urine pH 5.[address] [place] 1.024 Urine Protein Negative Urine Glucose (UA) Negative Urine Ketones Negative Urine Blood Negative Urine Nitrite Negative Urine Bilirubin Negative Urine Urobilinogen Negative Ur Leukocyte Esterase 1+ H Urine RBC 1 Urine WBC 1 Urine Mucus Rare RPR Titer 07/08/16 07:30 WBC RBC Hgb Hct MCV MCHC RDW Plt Count MPV Sodium Potassium Chloride Carbon Dioxide Anion Gap BUN Creatinine Creat Clearance w eGFR Random Glucose Calcium Total Bilirubin AST ALT Alkaline Phosphatase Total Protein Albumin Urine Color Urine Appearance Urine pH Ur Specific [place] Urine Protein Urine Glucose (UA) Urine Ketones Urine Blood Urine Nitrite Urine Bilirubin Urine Urobilinogen Ur Leukocyte Esterase Urine RBC Urine WBC Urine Mucus RPR Titer Nonreactive Labs noted Assessment: 07/08/16 13:29 Withdrawal symptoms c/o toothache (motrin not effective) Plan: Continue detox Toothache: continue motrin, add viscous lidocaine 2% 20ml swish and spit q6hr prn, follow up with your dentist post discharge
[2016-07-08] MEDS: THIAMINE HCL 100 MG TABLET (FP) PO SCH (22:20)
[2016-07-08] MEDS: diphenhydrAMINE HCL 50 MG CAPSULE PO PRN (22:20)
--- NOTE | 2016-07-08 22:32 | EKG ---
Test Reason : Blood Pressure : / mmHG Vent. Rate : 078 BPM Atrial Rate : 078 BPM P-R Int : 146 ms QRS Dur : 108 ms QT Int : 408 ms P-R-T Axes : 009 040 010 degrees QTc Int : 465 ms NORMAL SINUS RHYTHM NORMAL ECG NO PREVIOUS ECGS AVAILABLE Confirmed by ANGUS MACKENZIE MD ([id number]) on 07/08/2016 10:32:01 PM Referred By: Confirmed By:ANGUS MACKENZIE MD
[2016-07-09] MEDS: chlordiazePOXIDE HCL 25 MG CAPSULE PO SCH ×2 (05:32→10:30)
--- NOTE | 2016-07-09 09:33 | PN ---
S CIWA - CIWA Score Nausea/Vomitin-No Nausea/No Vomiting Muscle Tremors: 4-Moderate,w/Arms Extend Anxiety: 3 Agitation: 3 Paroxysmal Sweats: 3 Orientation: 0-Oriented Tacttile Disturbances: 0-None Auditory Disturbances: 0-None Visual Disturbances: 0-None Headache: 1-Very Mild CIWA-Ar Total Score: 14 S Progress Note (SOAP) Subjective: sweats interrupted sleep agitation tired irritable Objective: 07/09/16 09:32 Vital Signs Temperature 97.3 F L 07/09/16 05:50 Pulse Rate 93 H 07/09/16 05:50 Respiratory Rate 20 07/09/16 05:50 Blood Pressure 112/68 07/09/16 05:50 O2 Sat by Pulse Oximetry (%) Laboratory Tests 07/07/16 07/08/16 07/08/16 17:55 07:30 07:30 WBC 7.8 D RBC 4.27 Hgb 13.2 Hct 39.4 MCV 92.3 MCHC 33.6 RDW 13.5 Plt Count 218 MPV 8.4 Sodium 140 Potassium 4.4 Chloride 102 Carbon Dioxide 30 Anion Gap 8 BUN 17 D Creatinine 0.6 L Creat Clearance w eGFR > 60 Random Glucose 105 Calcium 8.7 Total Bilirubin 0.3 D AST 45 H D ALT 173 H D Alkaline Phosphatase 86 D Total Protein 7.2 Albumin 3.9 Urine Color Yellow Urine Appearance Clear Urine pH 5.0 Ur Specific [place] 1.024 Urine Protein Negative Urine Glucose (UA) Negative Urine Ketones Negative Urine Blood Negative Urine Nitrite Negative Urine Bilirubin Negative Urine Urobilinogen Negative Ur Leukocyte Esterase 1+ H Urine RBC 1 Urine WBC 1 Urine Mucus Rare RPR Titer 07/08/16 07:30 WBC RBC Hgb Hct MCV MCHC RDW Plt Count MPV Sodium Potassium Chloride Carbon Dioxide Anion Gap BUN Creatinine Creat Clearance w eGFR Random Glucose Calcium Total Bilirubin AST ALT Alkaline Phosphatase Total Protein Albumin Urine Color Urine Appearance Urine pH Ur Specific [place] Urine Protein Urine Glucose (UA) Urine Ketones Urine Blood Urine Nitrite Urine Bilirubin Urine Urobilinogen Ur Leukocyte Esterase Urine RBC Urine WBC Urine Mucus RPR Titer Nonreactive awake/alert ambulating no acute distress Assessment: 07/09/16 09:32 withdrawal sx Plan: continue detox increase fluids
[2016-07-09] MEDS ORDERED: METHADONE HCL 10 MG TABLET PO ONE (09:52)
[2016-07-09] MEDS ORDERED: METHADONE 120 MG, METHADONE 20 MG PO ONE (10:03)
[2016-07-09] MEDS ORDERED: METHADONE HCL 40 MG DISPERSABLE TABLET ONE (10:08)
[2016-07-09] MEDS ORDERED: METHADONE HCL 10 MG TABLET ONE (10:08)
[2016-07-09] MEDS: PRENATAL VITAMINS W/ FOLIC ACID TABLET (FP) PO SCH (10:30)
[2016-07-09] MEDS: NICOTINE 14 MG/24 HOURS TOPICAL PATCH TD SCH (10:31)
[2016-07-09] MEDS: IBUPROFEN 400 MG TABLET (FP) PO PRN (11:40)
--- NOTE | 2016-07-09 13:51 | CONSULT ---
[facility] Psychiatric Consult - Data Date of interview: 07/09/16 Admission source: [facility] Identifying data: Readmission to [facility] for this 36 y/o Russian-[place]ones[place] male seeking detox treatment for heroin and cocaine dependence (tox screen is positive only for methadone).Patient is without children,domiciled, unemployed and deprived of any source of income. Substance Abuse History: - Smoking Cessation. Smoking history: Current every day smoker. Have you smoked in the past 12 months: Yes. Aproximately how many cigarettes per day: 10. Cigars Per Day: 0. Hx Chewing Tobacco Use: No. Initiated information on smoking cessation: Yes. 'Breaking Loose' booklet given : 07/07/16 (give on florr). - Substance & Tx. History. Hx Alcohol Use: Yes. Hx Substance Use: No. Substance Use Type: Alcohol. Hx Substance Use Treatment : Yes (methadone, hx detox). - Substances Abused. Alcohol. Route: Oral. Frequency: Daily. Amount used: ten twelve oz beers; 'some' liquor. Age of first use: 17. Date of Last Use: 07/07/16. Confirmed by patient. Medical History: History of withdrawal-related seizures,hepatitis C and orthosurgery for injury to right forearm (hardware in situ)/right elbow (now resolved). Psychiatric History: First contact with Psychiatry (2012) was at [facility] after a suicide attempt via overdose with prescribed medications (month supply of zolpidem).Mr Bolton reports that he was diagnosed with " insomnia ".Dropped out of follow up care.He is currently on methadone maintenance (140 mg/day) at the [facility] [place] M[facility].He also indicates that he sees a private psychiatrist,in the [place], for medication management (seroquel 400 mg/day).Patient endorses a history of refractory insomnia. Physical/Sexual Abuse/Trauma History: Patient denies. Additional Comment: Urine Drug Screen Results: MTD-Methadone.Noted. Mental Status Exam - Mental Status Exam Alert and Oriented to: Time, Place, Person Cognitive Function: Good Patient Appearance: Unkempt, Disheveled (tattoos on chest and arms) Mood: Nervous, Withdrawn, Anxious Affect: Mood Congruent Patient Behavior: Fatigued, Appropriate, Cooperative Speech Pattern: Clear (communicates with an impeccable thai) Voice Loudness: Normal Thought Process: Goal Oriented Thought Disorder: Not Present Hallucinations: Denies Suicidal Ideation: Denies Homicidal Ideation: Denies Insight/Judgement: Poor Sleep: Poorly, Difficulty falling asleep Appetite: Good (observed eating his lunch) Muscle strength/Tone: Normal Gait/Station: Normal Psychiatric Findings - Problem List ([place] 1, 2,3) (1) Alcohol dependence with uncomplicated withdrawal Current Visit: Yes Status: Acute (2) Opioid dependence on agonist therapy Current Visit: Yes Status: Acute (3) Nicotine dependence Current Visit: Yes Status: Acute Qualifiers: Nicotine product type: cigarettes Substance use status: uncomplicated Qualified Code(s): F17.210 - Nicotine dependence, cigarettes, uncomplicated (4) Drug-induced mood disorder Current Visit: Yes Status: Acute (5) Hepatitis C antibody test positive Current Visit: Yes Status: Chronic (6) History of seizure Current Visit: Yes Status: Chronic Comment: drug related one year ago (7) Insomnia Current Visit: Yes Status: Chronic - Initial Treatment Plan Initial Treatment Plan: Psychoeducation.Detoxification.Medication : seroquel 200 mg po hs.Confirmed by pharmacy claims of 05/24/16 @ [facility].Side effects/benefits discussed with the patient.He agrees with this careplan.Observation.
[2016-07-09] MEDS: chlordiazePOXIDE 5 MG CAPSULE PO SCH ×2 (17:38→22:48)
[2016-07-09] MEDS: QUEtiapine FUMARATE 200 MG TABLET PO SCH (22:10)
[2016-07-09] MEDS: THIAMINE HCL 100 MG TABLET (FP) PO SCH (22:10)
[2016-07-10] MEDS: chlordiazePOXIDE 5 MG CAPSULE PO SCH ×2 (05:50→10:43)
[2016-07-10] MEDS ORDERED: METHADONE HCL 40 MG DISPERSABLE TABLET PO SCH (06:00)
[2016-07-10] MEDS ORDERED: METHADONE HCL 10 MG TABLET ONE (06:21)
[2016-07-10] MEDS ORDERED: METHADONE HCL 40 MG DISPERSABLE TABLET ONE (06:21)
--- NOTE | 2016-07-10 09:26 | PN ---
S Progress Note (SOAP) Subjective: ALERT,IRRITABLE,ANXIOUS,INTERRUPTED SLEEP,HEADACHE Objective: 07/10/16 09:25 Vital Signs Temperature 97.9 F 07/10/16 05:47 Pulse Rate 90 07/10/16 05:47 Respiratory Rate 20 07/10/16 05:47 Blood Pressure 106/68 07/10/16 05:47 O2 Sat by Pulse Oximetry (%) Assessment: 07/10/16 09:25 WITHDRAWAL SYMPTOM Plan: CONTINUE DETOX,DISCHARGE IN AM
[2016-07-10] MEDS: PRENATAL VITAMINS W/ FOLIC ACID TABLET (FP) PO SCH (10:43)
[2016-07-10] MEDS: NICOTINE 14 MG/24 HOURS TOPICAL PATCH TD SCH (10:43)
[2016-07-10] MEDS: METHADONE 120 MG, METHADONE 20 MG PO SCH (10:44)
[2016-07-10] MEDS: chlordiazePOXIDE HCL 10 MG CAPSULE PO SCH ×2 (17:55→22:08)
[2016-07-10] MEDS: IBUPROFEN 400 MG TABLET (FP) PO PRN (22:08)
[2016-07-10] MEDS: THIAMINE HCL 100 MG TABLET (FP) PO SCH (22:08)
[2016-07-10] MEDS: QUEtiapine FUMARATE 200 MG TABLET PO SCH (22:08)
[2016-07-11] MEDS ORDERED: METHADONE HCL 40 MG DISPERSABLE TABLET ONE (04:05)
[2016-07-11] MEDS ORDERED: METHADONE HCL 10 MG TABLET ONE (04:06)
[2016-07-11] MEDS: METHADONE 120 MG, METHADONE 20 MG PO SCH (06:18)
[2016-07-11] MEDS: chlordiazePOXIDE HCL 10 MG CAPSULE PO SCH ×2 (06:19→10:12)
--- NOTE | 2016-07-11 08:27 | DS ---
[facility] Detox Discharge Summary Admission Date: 07/07/16 Discharge Date: 07/11/16 - History Present History: Alcohol Dependence, Cocaine Dependence, Sedative Dependence, MMTP - Physical Exam Results Vital Signs: Vital Signs Temperature 96.7 F L 07/11/16 06:36 Pulse Rate 108 H 07/11/16 06:36 Respiratory Rate 20 07/11/16 06:36 Blood Pressure 109/68 07/11/16 06:36 O2 Sat by Pulse Oximetry (%) - Treatment Hospital Course: Detox Protocol Followed, Detoxed Safely, Responded well, Discharged Condition Good, Rehab Referral Accepted - Medication Discharge Medications: Ambulatory Orders Quetiapine Fumarate [Seroquel -] 200 mg PO HS #30 tab 03/28/16 Quetiapine Fumarate [Seroquel -] 200 mg PO HS #14 tab 07/09/16 - Diagnosis (1) Alcohol dependence with uncomplicated withdrawal Current Visit: Yes Status: Chronic (2) Drug-induced mood disorder Current Visit: Yes Status: Acute (3) Nicotine dependence Current Visit: Yes Status: Chronic Qualifiers: Nicotine product type: cigarettes Substance use status: uncomplicated Qualified Code(s): F17.210 - Nicotine dependence, cigarettes, uncomplicated (4) Opioid dependence on agonist therapy Current Visit: Yes Status: Acute (5) Hepatitis C antibody test positive Current Visit: Yes Status: Chronic (6) History of seizure Current Visit: Yes Status: Chronic (7) Insomnia Current Visit: Yes Status: Chronic (8) Methadone maintenance therapy patient Current Visit: Yes Status: Chronic (9) Alcohol dependence with alcohol-induced mood disorder Current Visit: No Status: Acute (10) Weight loss Current Visit: No Status: Acute (11) Anxiety Current Visit: No Status: Chronic (12) Cocaine abuse Current Visit: No Status: Chronic (13) Dry skin dermatitis Current Visit: No Status: Chronic (14) Opioid abuse Current Visit: No Status: Chronic (15) Xanax use disorder, mild, abuse Current Visit: Yes Status: Chronic - AMA Did Patient Leave Against Medical Advice: No
[2016-07-11] MEDS: PRENATAL VITAMINS W/ FOLIC ACID TABLET (FP) PO SCH (10:12)
[2016-07-11] MEDS: NICOTINE 14 MG/24 HOURS TOPICAL PATCH TD SCH (10:12)
[2016-07-11 10:20] VITALS: BP 120/66; PULSE 84; TEMP 98.2
== END 2016-07-11 12:52 | disposition other institution (70) | DRG 773 ==
LOC: YASAS 11:00 → Y6N 12:23
PROVIDERS: ADMIT Internal Medicine; ATTEND Internal Medicine Addiction Medicine
PROC: HZ2ZZZZ Detoxification Services for Substance Abuse Treatment (ICD-10-PCS; principal; 2016-07-07)
DX: F11.20 Opioid dependence, uncomplicated (principal); F14.10 Cocaine abuse, uncomplicated; F13.10 Sedative, hypnotic or anxiolytic abuse, uncomplicated; F17.210 Nicotine dependence, cigarettes, uncomplicated; F19.24 Other psychoactive substance dependence with psychoactive substance-induced mood disorder; F41.9 Anxiety disorder, unspecified; B18.2 Chronic viral hepatitis C; G47.00 Insomnia, unspecified; L85.3 Xerosis cutis; K08.89 Other specified disorders of teeth and supporting structures; Z86.69 Personal history of other diseases of the nervous system and sense organs; Z87.898 Personal history of other specified conditions; Z91.5 Personal history of self-harm
CPT/HCPCS: 36415; 80053; 81003; 81015; 85027; 86593; 93005; 93010

== ENCOUNTER 2016-07-11 13:11 | Inpatient (IN) | payer OTHER ==
[2016-07-11 13:49] VITALS: BMI 24.7
--- NOTE | 2016-07-11 13:49 | HP ---
Psychiatrist Admission - Data Date of interview: 07/11/16 Admission source: 6N Identifying data: This the third [facility] admission for this 36 years old Greenlandic-Cuban male, unemployed with no source of income, domiciled seeking rehab treatment for alcohol Medical History: Significant for Alcohol-related seizures, Hepatitis C and orthosurgery for fracture to right forearm (hardware in situ)/right elbow (now resolved). Patient attends [facility] on methadone 140 mg daily. Smokes 10 cigarettes daily Psychiatric History: Reports that his first psychiatric contact was in 2012 when he was admitted to [facility] for suicidal attempt by overdosing on 30 tablets of Ambien. Claims that he was discharged after 3 days. He told health science writer that he overdosed because he was having a panic attack and wanted it to end. On a previous rehab admission on this unit in 2015, he told health science writer that he was under the influence when he did that. Since discharged from [facility], his psychiatric contacts occured only when admitted to inpt detox/rehab. For the past 2 months, he reports seeing a psychiatrist in the [place] for insomnia and he is prescribed Seroquel 200 mg po HS. He was seen by Dr Fink on 07/09/16 while in detox and continued on Seroquel 200 mg po HS. Told health science writer that he has a sleeping problem that is not by any medication but Seroquel. Tomeka that prior to seeing that doctor in the [place], he has been buying Seroquel off the street for the past 4 years. Presently, reports having a headache but otherwise fine. Denies suicidal/ homicidal ideations Physical/Sexual Abuse/Trauma History: Denies history of emotional, physical or sexual abuse as well as DV relationship Additional Comment: Reports hisory of 4 previous arrests including one felony conviction. Probation ends 2020 Allergies/Adverse Reactions: Allergies Allergy/AdvReac Type Severity Reaction Status Date / Time No Known Allergies Allergy Verified 07/07/16 12:11 Date of last physical exam: 07/07/16 Concur with the findings of this exam: Yes - Substance Abuse/Tx History Hx Alcohol Use: Yes Substance Use Type: Alcohol (Started drinking alcohol at age 17, consumes 10x 12oz of beer daily. Last drink on07/07/16) Hx Substance Use Treatment: Yes (2 previous inpt detox & 2 inpt rehab @ [facility]) - Admission Criteria Previous failed treatment: No Poor recovery environment: Yes Comorbidities: Yes Lacks judgement: Yes Mental Status Exam - Mental Status Exam Alert and Oriented to: Time, Place, Person Cognitive Function: Fair Patient Appearance: Disheveled Mood: Hopeful, Euthymic Affect: Appropriate Patient Behavior: Cooperative Speech Pattern: Clear Voice Loudness: Normal Thought Process: Intact Thought Disorder: Not Present Hallucinations: Denies Suicidal Ideation: Denies Homicidal Ideation: Denies Insight/Judgement: Fair Sleep: Poorly Appetite: Good Muscle strength/Tone: Normal Gait/Station: Normal Psychiatric Findings - Problem List ([place] 1, 2,3) (1) Alcohol dependence with uncomplicated withdrawal Current Visit: No Status: Chronic (2) Opioid dependence on agonist therapy Current Visit: No Status: Acute (3) Nicotine dependence Current Visit: No Status: Chronic Qualifiers: Nicotine product type: cigarettes Substance use status: uncomplicated Qualified Code(s): F17.210 - Nicotine dependence, cigarettes, uncomplicated (4) Alcohol-induced sleep disorder Current Visit: Yes Status: Acute (5) Dry skin dermatitis Current Visit: No Status: Chronic (6) Hepatitis C antibody test positive Current Visit: No Status: Chronic (7) History of seizure Current Visit: No Status: Chronic Comment: drug related one year ago - Initial Treatment Plan Initial Treatment Plan: 1) Continue Seroquel 200 mg po HS. Discussed with adverse-effects(Diabetes, Tardive Dyskynesia etc) of Seroquel and he insists on taking it. 2) Monitor progress
[2016-07-11] MEDS ORDERED: ACETAMINOPHEN 325 MG TABLET (FP) PO PRN (13:52)
[2016-07-11] MEDS ORDERED: MAGNESIUM HYDROX 2400MG/30ML ORAL SUSPENSION 30 ML CUP PO PRN (13:52)
[2016-07-11] MEDS ORDERED: MAGNESIUM CITRATE 300 ML BOTTLE PO PRN (13:52)
[2016-07-11] MEDS ORDERED: P-EPHED 60MG/TRIPROLIDI 2.5MG TABLET PO PRN (13:52)
[2016-07-11] MEDS ORDERED: diphenhydrAMINE HCL 50 MG CAPSULE PO PRN (13:52)
[2016-07-11] MEDS ORDERED: NICOTINE POLACRILEX 4 MG GUM BUC PRN (13:52)
[2016-07-11] MEDS ORDERED: MAG HYDROX/AL HYDROX/SIMETH 30 ML UNIT-DOSE CUP PO PRN (13:52)
[2016-07-11] MEDS ORDERED: IBUPROFEN 400 MG TABLET (FP) PO PRN (13:52)
[2016-07-11] MEDS ORDERED: LOPERAMIDE HCL 2 MG CAPSULE PO PRN (13:52)
[2016-07-11] MEDS ORDERED: MENTHOL/PHENOL 1 EACH UD MM PRN (13:52)
[2016-07-11] MEDS ORDERED: guaiFENesin/D-METHORPHAN HB 10 ML UNIT-DOSE CUPS PO PRN (13:52)
[2016-07-11] MEDS ORDERED: LIDOCAINE VISCOUS 2% ORAL/TOP 20 ML UNIT-DOSE CUP MM PRN (13:54)
[2016-07-11] MEDS: IBUPROFEN 600 MG TABLET (FP) PO PRN ×2 (14:30→21:29)
[2016-07-11] MEDS: QUEtiapine FUMARATE 200 MG TABLET PO SCH (21:28)
[2016-07-11] MEDS: THIAMINE HCL 100 MG TABLET (FP) PO SCH (21:28)
[2016-07-12] MEDS ORDERED: METHADONE HCL 10 MG TABLET ONE (05:15)
[2016-07-12] MEDS ORDERED: METHADONE HCL 40 MG DISPERSABLE TABLET ONE (05:15)
[2016-07-12] MEDS ORDERED: METHADONE HCL 10 MG TABLET PO SCH (06:00)
[2016-07-12] MEDS: METHADONE 120 MG, METHADONE 20 MG PO SCH (06:16)
[2016-07-12] MEDS: IBUPROFEN 600 MG TABLET (FP) PO PRN ×2 (07:20→14:17)
[2016-07-12] MEDS: PRENATAL VITAMINS W/ FOLIC ACID TABLET (FP) PO SCH (09:49)
[2016-07-12] MEDS: NICOTINE 21 MG/24 HOURS TOPICAL PATCH TD SCH (09:50)
[2016-07-12] MEDS: THIAMINE HCL 100 MG TABLET (FP) PO SCH (21:48)
[2016-07-12] MEDS: QUEtiapine FUMARATE 200 MG TABLET PO SCH (21:48)
[2016-07-13] MEDS ORDERED: METHADONE HCL 10 MG TABLET ONE (04:27)
[2016-07-13] MEDS ORDERED: METHADONE HCL 40 MG DISPERSABLE TABLET ONE (04:27)
[2016-07-13] MEDS: METHADONE 120 MG, METHADONE 20 MG PO SCH (06:08)
[2016-07-13] MEDS: IBUPROFEN 600 MG TABLET (FP) PO PRN ×2 (09:52→21:52)
[2016-07-13] MEDS: PRENATAL VITAMINS W/ FOLIC ACID TABLET (FP) PO SCH (09:53)
[2016-07-13] MEDS: NICOTINE 21 MG/24 HOURS TOPICAL PATCH TD SCH (09:53)
[2016-07-13] MEDS: THIAMINE HCL 100 MG TABLET (FP) PO SCH (21:12)
[2016-07-13] MEDS: QUEtiapine FUMARATE 200 MG TABLET PO SCH (21:12)
[2016-07-13] MEDS ORDERED: NEOMYCIN/POLYMYXIN/BACITRACIN (TRIPLE ANTIBIOTIC) 28 GM OINTMENT TP PRN (22:09)
[2016-07-14] MEDS ORDERED: METHADONE HCL 40 MG DISPERSABLE TABLET ONE (04:07)
[2016-07-14] MEDS ORDERED: METHADONE HCL 10 MG TABLET ONE (04:07)
[2016-07-14] MEDS: METHADONE 120 MG, METHADONE 20 MG PO SCH (05:48)
[2016-07-14] MEDS: PRENATAL VITAMINS W/ FOLIC ACID TABLET (FP) PO SCH (09:45)
[2016-07-14] MEDS: NICOTINE 21 MG/24 HOURS TOPICAL PATCH TD SCH (09:46)
[2016-07-14] MEDS: IBUPROFEN 600 MG TABLET (FP) PO PRN ×2 (09:47→18:04)
[2016-07-14] MEDS ORDERED: PT OWN MED DRAWER 7, Y5N ONE (10:40)
[2016-07-14] MEDS: THIAMINE HCL 100 MG TABLET (FP) PO SCH (21:20)
[2016-07-14] MEDS: QUEtiapine FUMARATE 200 MG TABLET PO SCH (21:21)
[2016-07-15] MEDS ORDERED: METHADONE HCL 40 MG DISPERSABLE TABLET ONE (05:21)
[2016-07-15] MEDS ORDERED: METHADONE HCL 10 MG TABLET ONE (05:21)
[2016-07-15] MEDS: METHADONE 120 MG, METHADONE 20 MG PO SCH (06:02)
[2016-07-15] MEDS: NICOTINE 21 MG/24 HOURS TOPICAL PATCH TD SCH (10:33)
[2016-07-15] MEDS: PRENATAL VITAMINS W/ FOLIC ACID TABLET (FP) PO SCH (10:33)
[2016-07-15] MEDS: IBUPROFEN 600 MG TABLET (FP) PO PRN (10:34)
[2016-07-15] MEDS: THIAMINE HCL 100 MG TABLET (FP) PO SCH (21:26)
[2016-07-15] MEDS: QUEtiapine FUMARATE 200 MG TABLET PO SCH (21:26)
[2016-07-16] MEDS: IBUPROFEN 600 MG TABLET (FP) PO PRN ×2 (04:44→13:42)
[2016-07-16] MEDS ORDERED: METHADONE HCL 40 MG DISPERSABLE TABLET ONE (05:02)
[2016-07-16] MEDS ORDERED: METHADONE HCL 10 MG TABLET ONE (05:02)
[2016-07-16] MEDS: METHADONE 120 MG, METHADONE 20 MG PO SCH (05:52)
[2016-07-16] MEDS: NICOTINE 21 MG/24 HOURS TOPICAL PATCH TD SCH (10:07)
[2016-07-16] MEDS: PRENATAL VITAMINS W/ FOLIC ACID TABLET (FP) PO SCH (10:07)
[2016-07-16] MEDS: QUEtiapine FUMARATE 200 MG TABLET PO SCH (22:57)
[2016-07-16] MEDS: THIAMINE HCL 100 MG TABLET (FP) PO SCH (22:57)
[2016-07-17] MEDS ORDERED: METHADONE HCL 10 MG TABLET ONE (04:07)
[2016-07-17] MEDS ORDERED: METHADONE HCL 40 MG DISPERSABLE TABLET ONE (04:07)
[2016-07-17] MEDS: METHADONE 120 MG, METHADONE 20 MG PO SCH (06:11)
[2016-07-17] MEDS: NICOTINE 21 MG/24 HOURS TOPICAL PATCH TD SCH (10:10)
[2016-07-17] MEDS: PRENATAL VITAMINS W/ FOLIC ACID TABLET (FP) PO SCH (10:10)
[2016-07-17] MEDS: QUEtiapine FUMARATE 200 MG TABLET PO SCH (23:06)
[2016-07-17] MEDS: THIAMINE HCL 100 MG TABLET (FP) PO SCH (23:06)
[2016-07-18] MEDS ORDERED: METHADONE HCL 40 MG DISPERSABLE TABLET ONE (04:08)
[2016-07-18] MEDS ORDERED: METHADONE HCL 10 MG TABLET ONE (04:08)
[2016-07-18] MEDS: METHADONE 120 MG, METHADONE 20 MG PO SCH (06:15)
[2016-07-18] MEDS: PRENATAL VITAMINS W/ FOLIC ACID TABLET (FP) PO SCH (10:22)
[2016-07-18] MEDS: NICOTINE 21 MG/24 HOURS TOPICAL PATCH TD SCH (10:22)
[2016-07-18] MEDS: THIAMINE HCL 100 MG TABLET (FP) PO SCH (21:50)
[2016-07-18] MEDS: QUEtiapine FUMARATE 200 MG TABLET PO SCH (21:50)
[2016-07-19] MEDS ORDERED: METHADONE HCL 40 MG DISPERSABLE TABLET ONE (04:05)
[2016-07-19] MEDS ORDERED: METHADONE HCL 10 MG TABLET ONE (04:05)
[2016-07-19] MEDS: METHADONE 120 MG, METHADONE 20 MG PO SCH (06:07)
[2016-07-19] MEDS: NICOTINE 21 MG/24 HOURS TOPICAL PATCH TD SCH (10:07)
[2016-07-19] MEDS: PRENATAL VITAMINS W/ FOLIC ACID TABLET (FP) PO SCH (10:07)
[2016-07-19] MEDS: THIAMINE HCL 100 MG TABLET (FP) PO SCH (21:22)
[2016-07-19] MEDS: QUEtiapine FUMARATE 200 MG TABLET PO SCH (21:22)
[2016-07-20] MEDS ORDERED: METHADONE HCL 40 MG DISPERSABLE TABLET ONE (04:07)
[2016-07-20] MEDS ORDERED: METHADONE HCL 10 MG TABLET ONE (04:07)
[2016-07-20] MEDS: METHADONE 120 MG, METHADONE 20 MG PO SCH (05:58)
[2016-07-20] MEDS: NICOTINE 21 MG/24 HOURS TOPICAL PATCH TD SCH (10:19)
[2016-07-20] MEDS: PRENATAL VITAMINS W/ FOLIC ACID TABLET (FP) PO SCH (10:19)
[2016-07-20] MEDS: THIAMINE HCL 100 MG TABLET (FP) PO SCH (21:23)
[2016-07-20] MEDS: QUEtiapine FUMARATE 200 MG TABLET PO SCH (21:23)
[2016-07-21] MEDS ORDERED: METHADONE HCL 10 MG TABLET ONE (05:42)
[2016-07-21] MEDS ORDERED: METHADONE HCL 40 MG DISPERSABLE TABLET ONE (05:42)
[2016-07-21] MEDS: METHADONE 120 MG, METHADONE 20 MG PO SCH (06:36)
[2016-07-21] MEDS: PRENATAL VITAMINS W/ FOLIC ACID TABLET (FP) PO SCH (10:21)
[2016-07-21] MEDS: NICOTINE 21 MG/24 HOURS TOPICAL PATCH TD SCH (10:21)
[2016-07-21] MEDS: THIAMINE HCL 100 MG TABLET (FP) PO SCH (21:06)
[2016-07-21] MEDS: QUEtiapine FUMARATE 200 MG TABLET PO SCH (21:06)
[2016-07-22] MEDS ORDERED: METHADONE HCL 40 MG DISPERSABLE TABLET ONE (05:31)
[2016-07-22] MEDS ORDERED: METHADONE HCL 10 MG TABLET ONE (05:31)
[2016-07-22] MEDS: METHADONE 120 MG, METHADONE 20 MG PO SCH (06:19)
[2016-07-22] MEDS: NICOTINE 21 MG/24 HOURS TOPICAL PATCH TD SCH (10:19)
[2016-07-22] MEDS: PRENATAL VITAMINS W/ FOLIC ACID TABLET (FP) PO SCH (10:19)
[2016-07-22] MEDS: THIAMINE HCL 100 MG TABLET (FP) PO SCH (21:02)
[2016-07-22] MEDS: QUEtiapine FUMARATE 200 MG TABLET PO SCH (21:02)
[2016-07-23] MEDS ORDERED: METHADONE HCL 10 MG TABLET ONE (05:19)
[2016-07-23] MEDS ORDERED: METHADONE HCL 40 MG DISPERSABLE TABLET ONE (05:19)
[2016-07-23] MEDS: METHADONE 120 MG, METHADONE 20 MG PO SCH (06:16)
[2016-07-23] MEDS: PRENATAL VITAMINS W/ FOLIC ACID TABLET (FP) PO SCH (10:34)
[2016-07-23] MEDS: NICOTINE 21 MG/24 HOURS TOPICAL PATCH TD SCH (10:34)
[2016-07-23] MEDS: QUEtiapine FUMARATE 200 MG TABLET PO SCH (21:12)
[2016-07-23] MEDS: THIAMINE HCL 100 MG TABLET (FP) PO SCH (21:12)
[2016-07-24] MEDS ORDERED: METHADONE HCL 10 MG TABLET ONE (04:15)
[2016-07-24] MEDS ORDERED: METHADONE HCL 40 MG DISPERSABLE TABLET ONE (04:15)
[2016-07-24] MEDS: METHADONE 120 MG, METHADONE 20 MG PO SCH (06:12)
[2016-07-24] MEDS: NICOTINE 21 MG/24 HOURS TOPICAL PATCH TD SCH (10:23)
[2016-07-24] MEDS: PRENATAL VITAMINS W/ FOLIC ACID TABLET (FP) PO SCH (10:24)
[2016-07-24] MEDS: THIAMINE HCL 100 MG TABLET (FP) PO SCH (21:25)
[2016-07-24] MEDS: QUEtiapine FUMARATE 200 MG TABLET PO SCH (21:25)
[2016-07-25] MEDS ORDERED: METHADONE HCL 10 MG TABLET ONE (04:08)
[2016-07-25] MEDS ORDERED: METHADONE HCL 40 MG DISPERSABLE TABLET ONE (04:08)
[2016-07-25] MEDS: METHADONE 120 MG, METHADONE 20 MG PO SCH (06:04)
[2016-07-25] MEDS: NICOTINE 21 MG/24 HOURS TOPICAL PATCH TD SCH (10:18)
[2016-07-25] MEDS: PRENATAL VITAMINS W/ FOLIC ACID TABLET (FP) PO SCH (10:19)
[2016-07-25] MEDS: QUEtiapine FUMARATE 200 MG TABLET PO SCH (22:02)
[2016-07-25] MEDS: THIAMINE HCL 100 MG TABLET (FP) PO SCH (22:02)
[2016-07-26] MEDS ORDERED: METHADONE HCL 40 MG DISPERSABLE TABLET ONE (03:22)
[2016-07-26] MEDS ORDERED: METHADONE HCL 10 MG TABLET ONE (03:22)
[2016-07-26] MEDS: METHADONE 120 MG, METHADONE 20 MG PO SCH (06:03)
[2016-07-26] MEDS: PRENATAL VITAMINS W/ FOLIC ACID TABLET (FP) PO SCH (10:13)
[2016-07-26] MEDS: NICOTINE 21 MG/24 HOURS TOPICAL PATCH TD SCH (10:13)
[2016-07-26] MEDS: THIAMINE HCL 100 MG TABLET (FP) PO SCH (21:06)
[2016-07-26] MEDS: QUEtiapine FUMARATE 200 MG TABLET PO SCH (21:06)
[2016-07-27] MEDS ORDERED: METHADONE HCL 10 MG TABLET ONE (04:14)
[2016-07-27] MEDS ORDERED: METHADONE HCL 40 MG DISPERSABLE TABLET ONE (04:14)
[2016-07-27] MEDS: METHADONE 120 MG, METHADONE 20 MG PO SCH (06:39)
[2016-07-27] MEDS: PRENATAL VITAMINS W/ FOLIC ACID TABLET (FP) PO SCH (10:22)
[2016-07-27] MEDS: NICOTINE 21 MG/24 HOURS TOPICAL PATCH TD SCH (10:22)
[2016-07-27] MEDS: QUEtiapine FUMARATE 200 MG TABLET PO SCH (21:30)
[2016-07-27] MEDS: THIAMINE HCL 100 MG TABLET (FP) PO SCH (21:30)
[2016-07-28] MEDS ORDERED: METHADONE HCL 10 MG TABLET ONE (04:07)
[2016-07-28] MEDS ORDERED: METHADONE HCL 40 MG DISPERSABLE TABLET ONE (04:08)
[2016-07-28] MEDS: METHADONE 120 MG, METHADONE 20 MG PO SCH (06:23)
[2016-07-28] MEDS: PRENATAL VITAMINS W/ FOLIC ACID TABLET (FP) PO SCH (10:17)
[2016-07-28] MEDS: NICOTINE 21 MG/24 HOURS TOPICAL PATCH TD SCH (10:17)
[2016-07-28] MEDS: THIAMINE HCL 100 MG TABLET (FP) PO SCH (22:10)
[2016-07-28] MEDS: QUEtiapine FUMARATE 200 MG TABLET PO SCH (22:10)
[2016-07-29] MEDS ORDERED: METHADONE HCL 40 MG DISPERSABLE TABLET ONE (04:09)
[2016-07-29] MEDS ORDERED: METHADONE HCL 10 MG TABLET ONE (04:09)
[2016-07-29] MEDS: METHADONE 120 MG, METHADONE 20 MG PO SCH (06:18)
[2016-07-29] MEDS: PRENATAL VITAMINS W/ FOLIC ACID TABLET (FP) PO SCH (10:37)
[2016-07-29] MEDS: NICOTINE 21 MG/24 HOURS TOPICAL PATCH TD SCH (10:37)
[2016-07-29] MEDS: THIAMINE HCL 100 MG TABLET (FP) PO SCH (21:41)
[2016-07-29] MEDS: QUEtiapine FUMARATE 200 MG TABLET PO SCH (21:41)
[2016-07-30] MEDS ORDERED: METHADONE HCL 10 MG TABLET ONE (04:03)
[2016-07-30] MEDS ORDERED: METHADONE HCL 40 MG DISPERSABLE TABLET ONE (04:03)
[2016-07-30] MEDS: METHADONE 120 MG, METHADONE 20 MG PO SCH (06:13)
[2016-07-30] MEDS: PRENATAL VITAMINS W/ FOLIC ACID TABLET (FP) PO SCH (10:55)
[2016-07-30] MEDS: NICOTINE 21 MG/24 HOURS TOPICAL PATCH TD SCH (11:29)
[2016-07-30] MEDS: IBUPROFEN 600 MG TABLET (FP) PO PRN (14:55)
[2016-07-30] MEDS: THIAMINE HCL 100 MG TABLET (FP) PO SCH (21:58)
[2016-07-30] MEDS: QUEtiapine FUMARATE 200 MG TABLET PO SCH (21:58)
[2016-07-31] MEDS ORDERED: METHADONE HCL 10 MG TABLET ONE (04:07)
[2016-07-31] MEDS ORDERED: METHADONE HCL 40 MG DISPERSABLE TABLET ONE (04:08)
[2016-07-31] MEDS: METHADONE 120 MG, METHADONE 20 MG PO SCH (06:03)
[2016-07-31] MEDS: IBUPROFEN 600 MG TABLET (FP) PO PRN ×2 (06:03→15:34)
[2016-07-31] MEDS: PRENATAL VITAMINS W/ FOLIC ACID TABLET (FP) PO SCH (10:39)
[2016-07-31] MEDS: NICOTINE 21 MG/24 HOURS TOPICAL PATCH TD SCH (10:39)
[2016-07-31] MEDS: QUEtiapine FUMARATE 200 MG TABLET PO SCH (23:48)
[2016-07-31] MEDS: THIAMINE HCL 100 MG TABLET (FP) PO SCH (23:48)
[2016-08-01] MEDS ORDERED: METHADONE HCL 10 MG TABLET ONE (04:10)
[2016-08-01] MEDS ORDERED: METHADONE HCL 40 MG DISPERSABLE TABLET ONE (04:11)
[2016-08-01] MEDS: METHADONE 120 MG, METHADONE 20 MG PO SCH (06:18)
[2016-08-01] MEDS: PRENATAL VITAMINS W/ FOLIC ACID TABLET (FP) PO SCH (10:22)
[2016-08-01] MEDS: IBUPROFEN 600 MG TABLET (FP) PO PRN ×2 (10:22→21:33)
[2016-08-01] MEDS: NICOTINE 21 MG/24 HOURS TOPICAL PATCH TD SCH (10:23)
[2016-08-01] MEDS: QUEtiapine FUMARATE 200 MG TABLET PO SCH (21:32)
[2016-08-01] MEDS: THIAMINE HCL 100 MG TABLET (FP) PO SCH (21:32)
[2016-08-02] MEDS ORDERED: METHADONE HCL 40 MG DISPERSABLE TABLET ONE (04:15)
[2016-08-02] MEDS ORDERED: METHADONE HCL 10 MG TABLET ONE (04:15)
[2016-08-02] MEDS: METHADONE 120 MG, METHADONE 20 MG PO SCH (05:53)
[2016-08-02] MEDS: NICOTINE 21 MG/24 HOURS TOPICAL PATCH TD SCH (10:35)
[2016-08-02] MEDS: PRENATAL VITAMINS W/ FOLIC ACID TABLET (FP) PO SCH (10:35)
--- NOTE | 2016-08-02 10:59 | PN ---
Psychiatric Progress Note Vital Signs: Vital Signs Period Temp Pulse Resp BP Sys/Isabel Pulse Ox Last 24 Hr 98.5 F 85 18-18 109/60 Date of Session: 08/02/16 Chief Complaint:: Psychiatrist Discharge Note HPI: Patient addressing Alcohol Dependence comorbid with Opoid Dependence on Agonist Therapy, Nicotine Dependence and Substance-Induced Sleep Disorder ROS: Dry skin dermatitis, Hepatitis C, Alcohol-related seizure were medically managed Current Medications: Active Medications Generic Name Dose Route Start Last Admin Trade Name Freq PRN Reason Stop Dose Admin Acetaminophen 650 mg 07/11/16 13:52 Tylenol - PO Q4H PRN FEVER OR PAIN Al Hydroxide/Mg Hydroxide 30 ml 07/11/16 13:52 Mylanta Oral Suspension - PO Q6H PRN DYSPEPSIA Diphenhydramine HCl 50 mg 07/11/16 13:52 Benadryl - PO HSMR1 PRN FOR ITCHING Eucalyptus/Menthol/Phenol/Sorbitol 1 each 07/11/16 13:52 Cepastat Lozenge - MM Q4H PRN SORE THROAT Guaifenesin 10 ml 07/11/16 13:52 Robitussin Dm - PO Q6H PRN COUGH Ibuprofen 600 mg 07/11/16 14:26 08/01/16 21:33 Motrin - PO 600 mg Q6H PRN Administration PAIN Lidocaine HCl 20 ml 07/11/16 13:54 Xylocaine 2% Viscous Oral - MM Q6HPO PRN ORAL PAIN/MOUTH SORES Loperamide HCl 4 mg 07/11/16 13:52 Imodium - PO Q6H PRN DIARRHEA Magnesium Hydroxide 30 ml 07/11/16 13:52 Milk Of Magnesia - PO DAILY PRN CONSTIPATION Methadone HCl 120 mg/ 140 mg 07/30/16 06:00 08/02/16 05:53 Methadone HCl 20 mg PO 140 mg DAILY@0600 ANUJ Administration Neomycin/Polymyxin/Bacitracin 1 applic 07/13/16 22:09 Neosporin Topical Ointment - TP PRN PRN WOUND CARE Nicotine 21 mg 07/12/16 10:00 08/01/16 10:23 Nicoderm Patch - TD 21 mg DAILY ANUJ Administration Nicotine Polacrilex 4 mg 07/11/16 13:52 Nicorette Gum - BUC Q2H PRN NICOTINE REPLACEMENT RX Multivit/Folic Acid/Iron 1 tab 07/12/16 10:00 08/01/16 10:22 Vitamins (Sjr) - PO 1 tab DAILY ANUJ Administration Pseudoephedrine/Triprolidine 1 combo 07/11/16 13:52 Actifed - PO TID PRN NASAL CONGESTION Quetiapine Fumarate 200 mg 07/11/16 22:00 08/01/16 21:32 Seroquel - PO 200 mg HS ANUJ Administration Thiamine HCl 100 mg 07/11/16 22:00 08/01/16 21:32 Vitamin B1 - PO 100 mg HS ANUJ Administration Current Side Effect: No Lab tests ordered: Yes Lab tests reviewed: Yes Provider note:: Patient has completed this program. He has met his treatment goals and will continue to address his issues in m[facility] treatment at [facility]. He verbalized understanding of the negative consequences of his addiction and from his participation in this program, he has realized the value of a sober support network in order to maintain sobriety. He responded well to Seroquel 200 mg po HS. Script for that medication will be celectronically transmitted to [facility] at [address] [place] [address]. He is stable for discharge on 08/03/16 Total face to face time:: 35 Mental Status Exam - Mental Status Exam Alert and Oriented to: Time, Place, Person Cognitive Function: Fair Patient Appearance: Well Groomed Mood: Hopeful, Euthymic Affect: Appropriate Patient Behavior: Cooperative Speech Pattern: Clear Voice Loudness: Normal Thought Process: Intact Thought Disorder: Not Present Hallucinations: Denies Suicidal Ideation: Denies Homicidal Ideation: Denies Insight/Judgement: Fair Sleep: Fair Appetite: Good Muscle strength/Tone: Normal Gait/Station: Normal Psychiatric Treatment Plan - Problem List (1) Alcohol dependence with uncomplicated withdrawal Current Visit: No (2) Opioid dependence on agonist therapy Current Visit: No (3) Nicotine dependence Current Visit: No Qualifiers: Nicotine product type: cigarettes Substance use status: uncomplicated Qualified Code(s): F17.210 - Nicotine dependence, cigarettes, uncomplicated (4) Alcohol-induced sleep disorder Current Visit: Yes (5) Dry skin dermatitis Current Visit: No (6) Hepatitis C antibody test positive Current Visit: No (7) History of seizure Current Visit: No Comment: drug related one year ago Initial treatment plan: Patient will be discharged tomorrow and referred to [facility] for middle or intermediate school principal residential treatment
[2016-08-02] MEDS: QUEtiapine FUMARATE 200 MG TABLET PO SCH (22:56)
[2016-08-02] MEDS: THIAMINE HCL 100 MG TABLET (FP) PO SCH (22:56)
[2016-08-03] MEDS ORDERED: METHADONE HCL 40 MG DISPERSABLE TABLET ONE (04:12)
[2016-08-03] MEDS ORDERED: METHADONE HCL 10 MG TABLET ONE (04:12)
[2016-08-03] MEDS: METHADONE 120 MG, METHADONE 20 MG PO SCH (06:15)
[2016-08-03 06:50] VITALS: BP 113/77; PULSE 78; TEMP 97.6
[2016-08-03] MEDS ORDERED: PT OWN MED DRAWER 7, Y5N ONE (08:47)
[2016-08-03] MEDS: PRENATAL VITAMINS W/ FOLIC ACID TABLET (FP) PO SCH (09:48)
[2016-08-03] MEDS: NICOTINE 21 MG/24 HOURS TOPICAL PATCH TD SCH (09:48)
== END 2016-08-03 15:00 | disposition home or self-care (01) | DRG 772 ==
LOC: YASAS 13:11 → Y3W 13:12
PROVIDERS: ADMIT Psychiatry & Neurology Psychiatry; ATTEND Psychiatry & Neurology Psychiatry
PROC: HZ42ZZZ Group Counseling for Substance Abuse Treatment, Cognitive-Behavioral (ICD-10-PCS; principal; 2016-08-03)
DX: F11.20 Opioid dependence, uncomplicated (principal); F10.230 Alcohol dependence with withdrawal, uncomplicated; F17.210 Nicotine dependence, cigarettes, uncomplicated; F10.282 Alcohol dependence with alcohol-induced sleep disorder; L85.3 Xerosis cutis; B18.2 Chronic viral hepatitis C; Z86.69 Personal history of other diseases of the nervous system and sense organs

== ENCOUNTER 2017-01-29 12:29 | Inpatient (IN) | payer OTHER ==
[2017-01-29 13:41] VITALS: BMI 25.1
--- NOTE | 2017-01-29 13:53 | HP ---
CIWA Score - CIWA Score Nausea/Vomitin Muscle Tremors: 3 Anxiety: 3 Agitation: 3 Paroxysmal Sweats: 2 Orientation: 0-Oriented Tacttile Disturbances: 2-Mild Itch/Numbness/Burn Auditory Disturbances: 2-Mild Harshness/Frighten Visual Disturbances: 2-Mild Sensitivity Headache: 2-Mild CIWA-Ar Total Score: 22 Admission ROS BHS - HPI Chief Complaint: i need help to stop drinking alcohol,xanax,klonopin,heroin,seeking detox,on methadone program 150 mgs/day last medicated today, last treatment 07/07/16 to 07/11/16 seizure lat 2 weeks ago syncope weight loss nicotine dependence longest period of sobriety 2 years Allergies/Adverse Reactions: Allergies Allergy/AdvReac Type Severity Reaction Status Date / Time No Known Allergies Allergy Verified 01/29/17 13:43 History of Present Illness: this 37 years old male with alcohol and xanax,klonopin dependence,seeking detox, last treatment [facility] 07/07/16 to 07/11/16 [facility] 150 mgs/day seeking detox as mentioned in chief complaint Exam Limitations: No Limitations - Ebola screening Have you traveled outside of the country in the last 21 days: No Have you had contact with anyone from an Ebola affected area: No Have you been sick,other than usual withdrawal symptoms: No - Review of Systems Constitutional: See HPI, Chills, Diaphoresis, Loss of Appetite, Malaise, Night Sweats, Changes in sleep, Weakness EENT: reports: Tearing, Nose Congestion Respiratory: reports: No Symptoms reported Cardiac: reports: No Symptoms Reported GI: reports: Diarrhea, Nausea, Vomiting, Abdominal cramping : reports: No Symptoms Reported Musculoskeletal: reports: Back Pain, Joint Pain, Muscle Pain Integumentary: reports: Dryness Neuro: reports: Tremors Endocrine: reports: No Symptoms Reported Hematology: reports: No Symptoms Reported Psychiatric: reports: No Sypmtoms Reported, Judgement Intact, Mood/Affect Appropiate, Orientated x3, Anxious, Depressed Patient History - Patient Medical History Hx Anemia: No Hx Asthma: No Hx Chronic Obstructive Pulmonary Disease (COPD): No Hx Cancer: No Hx Cardiac Disorders: No Hx Congestive Heart Failure: No Hx Hypertension: No Hx Hypercholesterolemia: No Hx Pacemaker: No HX Cerebrovascular Accident: No Hx Seizures: Yes (drug related 01/29) Hx Dementia: No Hx Diabetes: No Hx Gastrointestinal Disorders: No Hx Liver Disease: No Hx Genitourinary Disorders: No Hx Sexually Transmitted Disorders: No Hx Renal Disease (ESRD): No Hx Thyroid Disease: No Hx Human Immunodeficiency Virus (HIV): No (2014) Hx Hepatitis C: Yes (not treated) Hx Depression: No Hx Suicide Attempt: Yes (2012 BY PILL OVER DOSE, tried to hang self years ago) Hx Bipolar Disorder: No Hx Schizophrenia: No Other Medical History: no suicidal,no homicidal - Patient Surgical History Past Surgical History: Yes Hx Neurologic Surgery: No Hx Cataract Extraction: No Hx Cardiac Surgery: No Hx Lung Surgery: No Hx Breast Surgery: No Hx Breast Biopsy: No Hx Abdominal Surgery: No Hx Appendectomy: Yes (2004) Hx Cholecystectomy: No Hx Genitourinary Surgery: No Hx Section: No Hx Orthopedic Surgery: Yes (rt forearm héctor , rt elbow ) Anesthesia Reaction: No - PPD History Previous Implant?: Yes Documented Results: Negative w/o proof Date: 12/29/15 Results: 0 mm PPD to be Administered?: Yes - Smoking Cessation Smoking history: Current every day smoker Have you smoked in the past 12 months: Yes Aproximately how many cigarettes per day: 20 Cigars Per Day: 0 Hx Chewing Tobacco Use: No Initiated information on smoking cessation: Yes 'Breaking Loose' booklet given: 01/29/17 - Substance & Tx. History Hx Alcohol Use: Yes Hx Substance Use: Yes Substance Use Type: Tranquilizers Hx Substance Use Treatment: Yes (06/27/16 to 07/11/16) - Substances Abused xanax or klonopin Route: Oral Frequency: Daily Amount used: 4 pills Age of first use: 30 Date of Last Use: 01/29/17 Alcohol Route: Oral Frequency: Daily Amount used: 10 BEERS Age of first use: 16 Date of Last Use: 01/28/17 Heroin Route: Inhalation Frequency: 1-2 times per week Amount used: 1 bag Age of first use: 32 Date of Last Use: 01/28/17 Family Disease History - Family Disease History Family Disease History: Other: Father (alive, no contact), Mother (alive, no contact), Sister (alive, no contact) Admission Physical Exam BHS - Vital Signs Vital Signs: Vital Signs - 24 hr 01/29/17 13:37 Temperature 97.8 F Pulse Rate 77 Respiratory 18 Rate Blood Pressure 104/63 - Physical General Appearance: Yes: Moderate Distress, Tremorous, Sweating, Anxious HEENTM: Yes: Normocephalic, RACHELE, Pharynx Normal Respiratory: Yes: Lungs Clear, Normal Breath Sounds, No Respiratory Distress Neck: Yes: Within Normal Limits, No masses,lesions,Nodules, Supple, Trachea in good position Breast: Yes: Within Normal Limits Cardiology: Yes: Within Normal Limits, Regular Rhythm, Regular Rate, S1, S2 Abdominal: Yes: Normal Bowel Sounds, Non Tender, Flat, Soft, Pulsatile Mass, Surgical Scar (s/p appendectomy) Genitourinary: Yes: Within Normal Limits Back: Yes: Normal Inspection, Muscle Spasm Musculoskeletal: Yes: full range of Motion, Gait Steady, Back pain Extremities: Yes: Within Normal Limits, Normal Range of Motion, Tremors Neurological: Yes: Within Normal Limits, early childhood special educator II-XII NML intact, Fully Oriented, Alert Integumentary: Yes: Dry Lymphatic: Yes: Within Normal Limits - Diagnostic (1) Alcohol dependence with uncomplicated withdrawal Current Visit: Yes Status: Chronic (2) Uncomplicated sedative, hypnotic or anxiolytic withdrawal Current Visit: Yes Status: Acute (3) Alcohol dependence with alcohol-induced mood disorder Current Visit: No Status: Acute (4) Opioid dependence on agonist therapy Current Visit: Yes Status: Acute (5) Weight loss Current Visit: No Status: Acute (6) Anxiety Current Visit: No Status: Chronic (7) Insomnia Current Visit: Yes Status: Acute (8) Nicotine dependence Current Visit: Yes Status: Acute Qualifiers: Nicotine product type: cigarettes Substance use status: uncomplicated Qualified Code(s): F17.210 - Nicotine dependence, cigarettes, uncomplicated; F17.210 - Nicotine dependence, cigarettes, uncomplicated Cleared for Admission BHS - Detox or Rehab [facility] Level of Care: Medically Managed Detox Regimen/Protocol: Valium [facility] Breath Alcohol Content Breath Alcohol Content: 0 Urine Drug Screen - Results Drug Screen Negative: No Urine Drug Screen Results: OPI-Opiates, BZO-Benzodiazepines, MTD-Methadone
[2017-01-29] MEDS ORDERED: LOPERAMIDE HCL 2 MG CAPSULE PO PRN (14:19)
[2017-01-29] MEDS ORDERED: guaiFENesin/D-METHORPHAN HB 10 ML UNIT-DOSE CUPS PO PRN (14:19)
[2017-01-29] MEDS ORDERED: MAGNESIUM HYDROX 2400MG/30ML ORAL SUSPENSION 30 ML CUP PO PRN (14:19)
[2017-01-29] MEDS ORDERED: MENTHOL/PHENOL 1 EACH UD MM PRN (14:19)
[2017-01-29] MEDS ORDERED: MAG HYDROX/AL HYDROX/SIMETH 30 ML UNIT-DOSE CUP PO PRN (14:19)
[2017-01-29] MEDS ORDERED: MAGNESIUM CITRATE 300 ML BOTTLE PO PRN (14:19)
[2017-01-29] MEDS ORDERED: P-EPHED 60MG/TRIPROLIDI 2.5MG TABLET PO PRN (14:19)
[2017-01-29] MEDS ORDERED: diphenhydrAMINE HCL 50 MG CAPSULE PO PRN (14:19)
[2017-01-29] MEDS ORDERED: IBUPROFEN 400 MG TABLET (FP) PO PRN (14:19)
[2017-01-29] MEDS ORDERED: diazePAM 5 MG TABLET PO ONE (14:38)
[2017-01-29] MEDS: NICOTINE 21 MG/24 HOURS TOPICAL PATCH TD SCH (15:21)
[2017-01-29 16:41] LABS: URINE APPEARANCE CLOUDY; URINE BILIRUBIN NEGATIVE (NEGATIVE); URINE BLOOD NEGATIVE (NEGATIVE); URINE COLOR AMBER; URINE GLUCOSE (UA) NEGATIVE (NEGATIVE); URINE KETONE NEGATIVE (NEGATIVE); URINE NITRITE NEGATIVE (NEGATIVE)
[2017-01-29 16:44] LABS: URINE PROTEIN 1+ (NEGATIVE)
--- NOTE | 2017-01-29 16:44 | CONSULT ---
[facility] Psychiatric Consult - Data Date of interview: 01/29/17 Admission source: [facility] Identifying data: This is one of multiple admissions to [facility] for this 37 y/ o [place]-Mauritanian male seeking detox treatment on for heroin and cocaine dependence (tox screen is positive only for methadone).Patient is without children,domiciled,unemployed and deprived of any source of income. Substance Abuse History: Confirmed by patient. Smoking Cessation. Smoking history: Current every day smoker. Have you smoked in the past 12 months: Yes. Aproximately how many cigarettes per day: 20. Cigars Per Day: 0. Hx Chewing Tobacco Use: No. Initiated information on smoking cessation: Yes. 'Breaking Loose' booklet given: 01/29/17. - Substance & Tx. History. Hx Alcohol Use: Yes. Hx Substance Use: Yes. Substance Use Type: Tranquilizers. Hx Substance Use Treatment: Yes (06/27/16 to 07/11/16). - Substances Abused. xanax or klonopin. Route: Oral. Frequency: Daily. Amount used: 4 pills. Age of first use: 30. Date of Last Use: 01/29/17 Medical History: History of withdrawal-related seizures,hepatitis C and orthosurgery for injury to right forearm (hardware in situ)/right elbow (now resolved). Psychiatric History: First contact with Psychiatry (2012) was at [facility] after a suicide attempt (overdose with 30 tablets of ambien).He is currently on methadone maintenance (150 mg/day) at the [facility] program.Mr Rosario indicates that he sees a psychiatrist at [facility] program in the [place] for medication management (seroquel). Physical/Sexual Abuse/Trauma History: Patient denies. Additional Comment: Urine Drug Screen Results: OPI-Opiates, BZO-Benzodiazepines , MTD-Methadone.Noted. Mental Status Exam - Mental Status Exam Alert and Oriented to: Time, Place, Person Cognitive Function: Good Patient Appearance: Well Groomed Mood: Withdrawn Affect: Appropriate, Normal Range Patient Behavior: Appropriate, Cooperative Speech Pattern: Clear (portuguese speaking) Voice Loudness: Normal Thought Process: Intact, Goal Oriented Thought Disorder: Not Present Hallucinations: Denies Suicidal Ideation: Denies Homicidal Ideation: Denies Insight/Judgement: Poor Sleep: Poorly, Difficulty falling asleep Appetite: Good Muscle strength/Tone: Normal Gait/Station: Normal Psychiatric Findings - Problem List ([place] 1, 2,3) (1) Alcohol dependence with uncomplicated withdrawal Current Visit: Yes Status: Chronic (2) Uncomplicated sedative, hypnotic or anxiolytic withdrawal Current Visit: Yes Status: Acute (3) Opioid dependence on agonist therapy Current Visit: Yes Status: Acute (4) Nicotine dependence Current Visit: Yes Status: Acute Qualifiers: Nicotine product type: cigarettes Substance use status: uncomplicated Qualified Code(s): F17.210 - Nicotine dependence, cigarettes, uncomplicated; F17.210 - Nicotine dependence, cigarettes, uncomplicated (5) Drug-induced mood disorder Current Visit: Yes Status: Acute (6) Hepatitis C antibody test positive Current Visit: Yes Status: Chronic (7) History of seizure Current Visit: No Status: Chronic Comment: drug related one year ago (8) Insomnia Current Visit: Yes Status: Acute - Initial Treatment Plan Initial Treatment Plan: Psychoeducation.Detoxification in progress.Seroquel 200 mg po hs.Side effects/benefits discussed with the patient.patient agrees with this careplan.Observation.
[2017-01-29 16:46] LABS: URINE BACTERIA RARE /hpf (NONE SEEN); URINE MUCUS MANY; URINE RBC 2 /hpf (0-3)
[2017-01-29 18:30] LABS: URINE LEUK ESTERASE Negative (NEGATIVE)
[2017-01-29] MEDS: THIAMINE HCL 100 MG TABLET (FP) PO SCH (22:23)
[2017-01-29] MEDS: QUEtiapine FUMARATE 200 MG TABLET PO SCH (22:23)
[2017-01-29] MEDS: diazePAM 5 MG TABLET PO SCH (22:23)
[2017-01-30] MEDS: diazePAM 5 MG TABLET PO SCH ×3 (05:30→22:18)
[2017-01-30] MEDS ORDERED: METHADONE HCL 40 MG DISPERSABLE TABLET PO SCH (08:15)
[2017-01-30 09:04] LABS: HIV 1 & 2 AB NEGATIVE; HIV 1 AGp24 NEGATIVE
[2017-01-30] MEDS ORDERED: METHADONE 120 MG, METHADONE 30 MG PO ONE (09:30)
[2017-01-30] MEDS ORDERED: METHADONE HCL 40 MG DISPERSABLE TABLET ONE (09:33)
[2017-01-30] MEDS ORDERED: METHADONE HCL 10 MG TABLET ONE (09:33)
[2017-01-30 10:11] LABS: MCHC 33.1 g/dl (32.0-35.9); MEAN CELL VOLUME 93.7 fl (80-96); MEAN PLT VOLUME 9.9 fl (7.5-11.1); PLATELET COUNT 256 K/MM3 (134-434); RDW 13.4 % (11.9-15.9); WHITE BLOOD COUNT 4.5 K/mm3 (4.0-10.0)
[2017-01-30 10:39] LABS: ALK PHOS 98 U/L (45-117); ANION GAP 6 (8-16); BILIRUBIN,TOTAL 0.3 mg/dL (0.2-1.0); CALCIUM 8.5 mg/dL (8.5-10.1); CO2 28 mmol/L (21-32); CREATININE 0.8 mg/dL (0.7-1.3); GLUCOSE,RANDOM 87 mg/dL (74-106); SGOT/AST 66 U/L (15-37); SGPT/ALT 146 U/L (12-78); TOT PROT 7.4 g/dl (6.4-8.2)
[2017-01-30] MEDS: PRENATAL VITAMINS W/ FOLIC ACID TABLET (FP) PO SCH (10:44)
[2017-01-30] MEDS: diazePAM 5 MG TABLET PO PRN ×2 (10:44→19:40)
[2017-01-30] MEDS: NICOTINE 21 MG/24 HOURS TOPICAL PATCH TD SCH (10:44)
--- NOTE | 2017-01-30 11:51 | PN ---
[facility] CIWA - CIWA Score Nausea/Vomitin Muscle Tremors: 3 Anxiety: 3 Agitation: 2 Paroxysmal Sweats: 2 Orientation: 0-Oriented Tacttile Disturbances: 1-Very Mild Itch/Numbness Auditory Disturbances: 1-Very Mild Visual Disturbances: 0-None Headache: 2-Mild CIWA-Ar Total Score: 17 S Progress Note (SOAP) Subjective: alert,irritable,anxious,interrupted sleep,tremor Objective: 01/30/17 11:48 Vital Signs Temperature 97.3 F L 01/30/17 10:00 Pulse Rate 80 01/30/17 10:00 Respiratory Rate 16 01/30/17 10:00 Blood Pressure 111/64 01/30/17 10:00 O2 Sat by Pulse Oximetry (%) ekg sinus bradycardia 51/min no chest pain,no sob,no dizziness 01/30/17 11:49 Laboratory Last Values WBC 4.5 K/mm3 (4.0-10.0) D 01/30/17 06:00 RBC 4.39 M/mm3 (4.00-5.60) 01/30/17 06:00 Hgb 13.6 GM/dL (11.7-16.9) 01/30/17 06:00 Hct 41.2 % (35.4-49) 01/30/17 06:00 MCV 93.7 fl (80-96) 01/30/17 06:00 MCH 31.0 pg (25.7-33.7) 01/30/17 06:00 MCHC 33.1 g/dl (32.0-35.9) 01/30/17 06:00 RDW 13.4 % (11.9-15.9) 01/30/17 06:00 Plt Count 256 K/MM3 (134-434) 01/30/17 06:00 MPV 9.9 fl (7.5-11.1) D 01/30/17 06:00 Sodium 137 mmol/L (136-145) 01/30/17 06:00 Potassium 4.7 mmol/L (3.5-5.1) 01/30/17 06:00 Chloride 103 mmol/L (98-107) 01/30/17 06:00 Carbon Dioxide 28 mmol/L (21-32) 01/30/17 06:00 Anion Gap 6 (8-16) L 01/30/17 06:00 BUN 8 mg/dL (7-18) D 01/30/17 06:00 Creatinine 0.8 mg/dL (0.7-1.3) D 01/30/17 06:00 Creat Clearance w eGFR > 60 (>60) 01/30/17 06:00 Random Glucose 87 mg/dL (74-106) 01/30/17 06:00 Calcium 8.5 mg/dL (8.5-10.1) 01/30/17 06:00 Total Bilirubin 0.3 mg/dL (0.2-1.0) 01/30/17 06:00 AST 66 U/L (15-37) H D 01/30/17 06:00 ALT 146 U/L (12-78) H 01/30/17 06:00 Alkaline Phosphatase 98 U/L (45-117) 01/30/17 06:00 Total Protein 7.4 g/dl (6.4-8.2) 01/30/17 06:00 Albumin 4.0 g/dl (3.4-5.0) 01/30/17 06:00 Urine Color Rachel 01/29/17 15:30 Urine Appearance Cloudy 01/29/17 15:30 Urine pH 5.0 (5.0-8.0) 01/29/17 15:30 Ur Specific [place] >= 1.030 (1.005-1.025) H 01/29/17 15:30 Urine Protein 1+ (NEGATIVE) H 01/29/17 15:30 Urine Glucose (UA) Negative (NEGATIVE) 01/29/17 15:30 Urine Ketones Negative (NEGATIVE) 01/29/17 15:30 Urine Blood Negative (NEGATIVE) 01/29/17 15:30 Urine Nitrite Negative (NEGATIVE) 01/29/17 15:30 Urine Bilirubin Negative (NEGATIVE) 01/29/17 15:30 Urine Urobilinogen 2.0 mg/dL (0.2-1.0) 01/29/17 15:30 Ur Leukocyte Esterase Negative (NEGATIVE) 01/29/17 15:30 Urine RBC 2 /hpf (0-3) 01/29/17 15:30 Urine WBC None /hpf (3-5) 01/29/17 15:30 Ur Epithelial Cells Rare /hpf (FEW) 01/29/17 15:30 Urine Bacteria Rare /hpf (NONE SEEN) 01/29/17 15:30 Urine Mucus Many 01/29/17 15:30 RPR Titer Nonreactive (NONREACTIVE) 01/30/17 06:00 HIV 1&2 Antibody Screen Negative 01/29/17 15:00 HIV P24 Antigen Negative 01/29/17 15:00 Assessment: 01/30/17 11:50 withdrawal symptom Plan: continue detox,d/c tylenol due to elevation of alt,ast
--- NOTE | 2017-01-30 11:57 | EKG ---
Test Reason : Blood Pressure : / mmHG Vent. Rate : 051 BPM Atrial Rate : 051 BPM P-R Int : 156 ms QRS Dur : 094 ms QT Int : 456 ms P-R-T Axes : 010 027 008 degrees QTc Int : 420 ms SINUS BRADYCARDIA OTHERWISE NORMAL ECG WHEN COMPARED WITH ECG OF 07-JUL-2016 13:10, VENT. RATE HAS DECREASED BY 27 BPM Confirmed by LEFTY HENNESSY MD ([id number]) on 01/30/2017 11:56:28 AM Referred By: Confirmed By:LEFTY HENNESSY MD
[2017-01-30] MEDS ORDERED: FLU VACCINE QUAD 60 MCG/0.5 ML (MDV 17-18) IM ONE (12:00)
[2017-01-30] MEDS: QUEtiapine FUMARATE 200 MG TABLET PO SCH (22:18)
[2017-01-30] MEDS: THIAMINE HCL 100 MG TABLET (FP) PO SCH (22:18)
[2017-01-31] MEDS ORDERED: METHADONE HCL 40 MG DISPERSABLE TABLET ONE (04:59)
[2017-01-31] MEDS ORDERED: METHADONE HCL 10 MG TABLET ONE (05:00)
[2017-01-31] MEDS: METHADONE 120 MG, METHADONE 30 MG PO SCH (05:33)
[2017-01-31] MEDS: diazePAM 5 MG TABLET PO PRN ×3 (05:33→20:34)
[2017-01-31] MEDS: diazePAM 5 MG TABLET PO SCH ×2 (11:00→22:03)
[2017-01-31] MEDS: PRENATAL VITAMINS W/ FOLIC ACID TABLET (FP) PO SCH (11:00)
[2017-01-31] MEDS: NICOTINE 21 MG/24 HOURS TOPICAL PATCH TD SCH (11:00)
--- NOTE | 2017-01-31 11:01 | PN ---
S CIWA - CIWA Score Nausea/Vomitin Muscle Tremors: 3 Anxiety: 3 Agitation: 2 Paroxysmal Sweats: 1-Minimal Palms Moist Orientation: 0-Oriented Tacttile Disturbances: 1-Very Mild Itch/Numbness Auditory Disturbances: 1-Very Mild Visual Disturbances: 0-None Headache: 2-Mild CIWA-Ar Total Score: 16 BHS Progress Note (SOAP) Subjective: alert,irritable,anxious,interrupted sleep,pain in the body Objective: 01/31/17 11:00 Vital Signs Temperature 97.7 F 01/31/17 09:56 Pulse Rate 82 01/31/17 09:56 Respiratory Rate 16 01/31/17 09:56 Blood Pressure 101/69 01/31/17 09:56 O2 Sat by Pulse Oximetry (%) Laboratory Last Values WBC 4.5 K/mm3 (4.0-10.0) D 01/30/17 06:00 RBC 4.39 M/mm3 (4.00-5.60) 01/30/17 06:00 Hgb 13.6 GM/dL (11.7-16.9) 01/30/17 06:00 Hct 41.2 % (35.4-49) 01/30/17 06:00 MCV 93.7 fl (80-96) 01/30/17 06:00 MCH 31.0 pg (25.7-33.7) 01/30/17 06:00 MCHC 33.1 g/dl (32.0-35.9) 01/30/17 06:00 RDW 13.4 % (11.9-15.9) 01/30/17 06:00 Plt Count 256 K/MM3 (134-434) 01/30/17 06:00 MPV 9.9 fl (7.5-11.1) D 01/30/17 06:00 Sodium 137 mmol/L (136-145) 01/30/17 06:00 Potassium 4.7 mmol/L (3.5-5.1) 01/30/17 06:00 Chloride 103 mmol/L (98-107) 01/30/17 06:00 Carbon Dioxide 28 mmol/L (21-32) 01/30/17 06:00 Anion Gap 6 (8-16) L 01/30/17 06:00 BUN 8 mg/dL (7-18) D 01/30/17 06:00 Creatinine 0.8 mg/dL (0.7-1.3) D 01/30/17 06:00 Creat Clearance w eGFR > 60 (>60) 01/30/17 06:00 Random Glucose 87 mg/dL (74-106) 01/30/17 06:00 Calcium 8.5 mg/dL (8.5-10.1) 01/30/17 06:00 Total Bilirubin 0.3 mg/dL (0.2-1.0) 01/30/17 06:00 AST 66 U/L (15-37) H D 01/30/17 06:00 ALT 146 U/L (12-78) H 01/30/17 06:00 Alkaline Phosphatase 98 U/L (45-117) 01/30/17 06:00 Total Protein 7.4 g/dl (6.4-8.2) 01/30/17 06:00 Albumin 4.0 g/dl (3.4-5.0) 01/30/17 06:00 Urine Color Rachel 01/29/17 15:30 Urine Appearance Cloudy 01/29/17 15:30 Urine pH 5.0 (5.0-8.0) 01/29/17 15:30 Ur Specific [place] >= 1.030 (1.005-1.025) H 01/29/17 15:30 Urine Protein 1+ (NEGATIVE) H 01/29/17 15:30 Urine Glucose (UA) Negative (NEGATIVE) 01/29/17 15:30 Urine Ketones Negative (NEGATIVE) 01/29/17 15:30 Urine Blood Negative (NEGATIVE) 01/29/17 15:30 Urine Nitrite Negative (NEGATIVE) 01/29/17 15:30 Urine Bilirubin Negative (NEGATIVE) 01/29/17 15:30 Urine Urobilinogen 2.0 mg/dL (0.2-1.0) 01/29/17 15:30 Ur Leukocyte Esterase Negative (NEGATIVE) 01/29/17 15:30 Urine RBC 2 /hpf (0-3) 01/29/17 15:30 Urine WBC None /hpf (3-5) 01/29/17 15:30 Ur Epithelial Cells Rare /hpf (FEW) 01/29/17 15:30 Urine Bacteria Rare /hpf (NONE SEEN) 01/29/17 15:30 Urine Mucus Many 01/29/17 15:30 RPR Titer Nonreactive (NONREACTIVE) 01/30/17 06:00 HIV 1&2 Antibody Screen Negative 01/29/17 15:00 HIV P24 Antigen Negative 01/29/17 15:00 Assessment: 01/31/17 11:00 withdrawal symptom Plan: continue detox
[2017-01-31] MEDS: THIAMINE HCL 100 MG TABLET (FP) PO SCH (22:03)
[2017-01-31] MEDS: QUEtiapine FUMARATE 200 MG TABLET PO SCH (22:03)
[2017-02-01] MEDS ORDERED: METHADONE HCL 40 MG DISPERSABLE TABLET ONE (04:26)
[2017-02-01] MEDS ORDERED: METHADONE HCL 10 MG TABLET ONE (04:27)
[2017-02-01] MEDS: METHADONE 120 MG, METHADONE 30 MG PO SCH (05:40)
[2017-02-01] MEDS: diazePAM 5 MG TABLET PO PRN ×2 (05:46→13:09)
--- NOTE | 2017-02-01 10:25 | PN ---
BHS Progress Note (SOAP) Subjective: alert,irritable,anxious,interrupted sleep Objective: 02/01/17 10:24 Vital Signs Temperature 98.9 F 02/01/17 09:50 Pulse Rate 95 H 02/01/17 09:50 Respiratory Rate 18 02/01/17 09:50 Blood Pressure 100/66 02/01/17 09:50 O2 Sat by Pulse Oximetry (%) Assessment: 02/01/17 10:24 withdrawal symptom Plan: continue detox,discharge in am
[2017-02-01] MEDS: PRENATAL VITAMINS W/ FOLIC ACID TABLET (FP) PO SCH (10:51)
[2017-02-01] MEDS: NICOTINE 21 MG/24 HOURS TOPICAL PATCH TD SCH (10:51)
[2017-02-01] MEDS: diazePAM 5 MG TABLET PO SCH ×2 (10:51→22:21)
[2017-02-01] MEDS: ACETAMINOPHEN 325 MG TABLET (FP) PO PRN ×2 (18:14→23:26)
[2017-02-01] MEDS: THIAMINE HCL 100 MG TABLET (FP) PO SCH (22:20)
[2017-02-01] MEDS: QUEtiapine FUMARATE 200 MG TABLET PO SCH (22:21)
[2017-02-02] MEDS ORDERED: METHADONE HCL 40 MG DISPERSABLE TABLET ONE (04:46)
[2017-02-02] MEDS ORDERED: METHADONE HCL 10 MG TABLET ONE (04:48)
[2017-02-02] MEDS: METHADONE 120 MG, METHADONE 30 MG PO SCH (07:14)
--- NOTE | 2017-02-02 09:02 | DS ---
[facility] Detox Discharge Summary Admission Date: 01/29/17 Discharge Date: 02/02/17 - History Present History: Alcohol Dependence, Opioid Dependence Pertinent Past History: pt completed detox medically stable on dc dc today Laboratory Tests 01/29/17 01/29/17 01/30/17 15:00 15:30 06:00 WBC 4.5 D RBC 4.39 Hgb 13.6 Hct 41.2 MCV 93.7 MCH 31.0 MCHC 33.1 RDW 13.4 Plt Count 256 MPV 9.9 D Sodium Potassium Chloride Carbon Dioxide Anion Gap BUN Creatinine Creat Clearance w eGFR Random Glucose Calcium Total Bilirubin AST ALT Alkaline Phosphatase Total Protein Albumin Urine Color Rachel Urine Appearance Cloudy Urine pH 5.0 Ur Specific [place] >= 1.030 H Urine Protein 1+ H Urine Glucose (UA) Negative Urine Ketones Negative Urine Blood Negative Urine Nitrite Negative Urine Bilirubin Negative Urine Urobilinogen 2.0 Ur Leukocyte Esterase Negative Urine RBC 2 Urine WBC None Ur Epithelial Cells Rare Urine Bacteria Rare Urine Mucus Many RPR Titer HIV 1&2 Antibody Screen Negative HIV P24 Antigen Negative 01/30/17 01/30/17 06:00 06:00 WBC RBC Hgb Hct MCV MCH MCHC RDW Plt Count MPV Sodium 137 Potassium 4.7 Chloride 103 Carbon Dioxide 28 Anion Gap 6 L BUN 8 D Creatinine 0.8 D Creat Clearance w eGFR > 60 Random Glucose 87 Calcium 8.5 Total Bilirubin 0.3 AST 66 H D ALT 146 H Alkaline Phosphatase 98 Total Protein 7.4 Albumin 4.0 Urine Color Urine Appearance Urine pH Ur Specific [place] Urine Protein Urine Glucose (UA) Urine Ketones Urine Blood Urine Nitrite Urine Bilirubin Urine Urobilinogen Ur Leukocyte Esterase Urine RBC Urine WBC Ur Epithelial Cells Urine Bacteria Urine Mucus RPR Titer Nonreactive HIV 1&2 Antibody Screen HIV P24 Antigen Vital Signs - 24 hr 02/01/17 02/01/17 02/01/17 09:50 14:38 18:09 Temperature 98.9 F 98.3 F 101.5 F H Pulse Rate 95 H 99 H 115 H Respiratory 18 17 20 Rate Blood Pressure 100/66 112/77 141/99 02/01/17 02/02/17 02/02/17 23:50 03:30 06:37 Temperature 100.9 F H 99.0 F Pulse Rate 101 H 75 Respiratory 20 17 16 Rate Blood Pressure 119/76 99/62 note mild temp increase yesterday mild transminitis advised to fu oupt - Physical Exam Results Vital Signs: Vital Signs Temperature 99.0 F 02/02/17 06:37 Pulse Rate 75 02/02/17 06:37 Respiratory Rate 16 02/02/17 06:37 Blood Pressure 99/62 02/02/17 06:37 O2 Sat by Pulse Oximetry (%) - Treatment Hospital Course: Detox Protocol Followed, Detoxed Safely, Responded well, Discharged Condition Good, Rehab Referral Accepted - Medication Discharge Medications: Ambulatory Orders Quetiapine Fumarate [Seroquel -] 200 mg PO HS #30 tab 01/29/17 - Diagnosis (1) Drug-induced mood disorder Current Visit: Yes Status: Acute (2) Insomnia Current Visit: Yes Status: Acute (3) Nicotine dependence Current Visit: Yes Status: Acute Qualifiers: Nicotine product type: cigarettes Substance use status: uncomplicated Qualified Code(s): F17.210 - Nicotine dependence, cigarettes, uncomplicated; F17.210 - Nicotine dependence, cigarettes, uncomplicated (4) Opioid dependence on agonist therapy Current Visit: Yes Status: Acute (5) Uncomplicated sedative, hypnotic or anxiolytic withdrawal Current Visit: Yes Status: Acute (6) Alcohol dependence with uncomplicated withdrawal Current Visit: Yes Status: Acute (7) Hepatitis C antibody test positive Current Visit: Yes Status: Chronic (8) Alcohol dependence with alcohol-induced mood disorder Current Visit: Yes Status: Acute (9) Weight loss Current Visit: Yes Status: Acute (10) Anxiety Current Visit: Yes Status: Chronic (11) Cocaine abuse Current Visit: Yes Status: Chronic (12) Dry skin dermatitis Current Visit: Yes Status: Chronic (13) History of seizure Current Visit: Yes Status: Chronic (14) Methadone maintenance therapy patient Current Visit: Yes Status: Chronic (15) Opioid abuse Current Visit: Yes Status: Chronic (16) Xanax use disorder, mild, abuse Current Visit: Yes Status: Chronic
[2017-02-02] MEDS ORDERED: diazePAM 5 MG TABLET PO SCH (10:00)
[2017-02-02 11:17] VITALS: BP 124/77; PULSE 88; TEMP 97.9
== END 2017-02-02 09:25 | disposition home or self-care (01) | DRG 773 ==
LOC: YASAS 12:29 → Y6N 14:34
PROVIDERS: ADMIT Internal Medicine; ATTEND Internal Medicine
PROC: HZ2ZZZZ Detoxification Services for Substance Abuse Treatment (ICD-10-PCS; principal; 2017-01-29)
DX: F11.20 Opioid dependence, uncomplicated (principal); F13.230 Sedative, hypnotic or anxiolytic dependence with withdrawal, uncomplicated; F10.230 Alcohol dependence with withdrawal, uncomplicated; F10.24 Alcohol dependence with alcohol-induced mood disorder; F19.24 Other psychoactive substance dependence with psychoactive substance-induced mood disorder; F41.9 Anxiety disorder, unspecified; G47.00 Insomnia, unspecified; B18.2 Chronic viral hepatitis C; L85.3 Xerosis cutis; R63.4 Abnormal weight loss; Z68.25 Body mass index [BMI] 25.0-25.9, adult; Z86.69 Personal history of other diseases of the nervous system and sense organs
CPT/HCPCS: 36415; 80053; 81003; 81015; 85027; 86593; 87389; 90688; 93005; 93010; G0008